=== PATIENT | male | born 1950 | race Caucasian/White ===

== ENCOUNTER 2017-10-10 07:20 | Emergency (ER) | payer OTHER, BC ==
[~2017-10-10] VITALS: Ht 188 cm; Wt 90.0 kg
[~2017-10-10 07:20] MED LIST: ASPEC81 PO; CLX20 PO; DVN80 PO; HYDR-4079 PO; LPR25 PO; PRLSR20 PO; SIMV80TA2 PO
[2017-10-10 07:23] VITALS: TEMP 37.8; Ht 188 cm; Wt 90.0 kg
[2017-10-10] MEDS ORDERED: KETOROLAC TROMETHAMINE 30 MG/ML VIAL IV STA (07:35)
[2017-10-10] MEDS ORDERED: ALBUT/IPRATROP 3MG/0.5MG NEB 3 ML VIAL INH STA (07:35)
[2017-10-10] MEDS ORDERED: METHYLPREDNISOLONE 125 MG VIAL IV STA (07:35)
[2017-10-10 08:09] VITALS: O2SAT 97
[2017-10-10 08:24] LABS: ALT/SGPT 129 U/L (12-78); BLOOD UREA NITROGEN 21 mg/dl (7-18); BUN/CREATININE RATIO 15.7 (10-20); CARBON DIOXIDE 25 mmol/L (21-32); CHLORIDE 94 mmol/L (98-107); CREATININE 1.32 mg/dl (0.60-1.40); GLUCOSE 117 mg/dl (70-99); POTASSIUM 3.7 mmol/L (3.5-5.1); SODIUM 131 mmol/L (136-145)
--- NOTE | 2017-10-10 08:25 | DIAGNOSTIC IMAGING REPORT ---
CHEST ONE VIEW PORTABLE CLINICAL HISTORY: 67 years-old Male presenting with cough. TECHNIQUE: Portable upright AP view of the chest was obtained. COMPARISON: 03/16/2013. FINDINGS: Median sternotomy wires with stable breakage of one of the mid wires. Mediastinal surgical clips unchanged. Cardiomediastinal silhouette normal. Lungs and pleural spaces clear. Osseous structures normal. Upper abdomen normal. IMPRESSION: 1. No acute cardiopulmonary disease. Electronically signed by: Johan Bhakta M.D. 10/10/2017 8:24 AM Dictated Date/Time: 10/10/2017 8:22 AM
[2017-10-10 08:29] LABS: ALB/GLOB RATIO 0.9 (0.9-2); ALKALINE PHOSPHATASE 141 U/L (45-117); AST/SGOT 153 U/L (15-37)
[2017-10-10 08:41] LABS: MEAN CELL VOLUME 91.5 fL (80-100); MEAN CORPUSCULAR HEMOGLOBIN 32.7 pg (25-34); MEAN CORPUSCULAR HGB CONC 35.8 g/dl (32-36); RED BLOOD COUNT 4.92 M/uL (4.7-6.1); WHITE BLOOD COUNT 2.63 K/uL (4.8-10.8)
[2017-10-10 08:59] LABS: MEAN PLATELET VOLUME 12.4 fL (7.4-10.4); PLATELET COUNT 53 K/uL (130-400)
[2017-10-10 09:05] LABS: COMPLETE YES; LYMPH ABS # 0.09 K/uL (1.2-3.4); LYMPHOCYTE % 3.5 %; NEUTROPHILS % 81.5 %; PLT ESTIMATE DECREASED; VACUOLIZATION 2+; VARIANT LYM ABS # 0.28 K/uL; VARIANT LYMPHOCYTE % 10.6 %
[2017-10-10] MEDS ORDERED: CITA40TA4 PO (09:08)
[2017-10-10] MEDS ORDERED: ASPI81TA28 PO (09:08)
[2017-10-10] MEDS ORDERED: DOXYCYCLINE HYCLATE 100 MG CAP PO STA (09:42)
[2017-10-10] MEDS ORDERED: HYDR-3419 PO (10:14)
[2017-10-10] MEDS ORDERED: DOXY100C41 PO (10:14)
[2017-10-10 10:15] VITALS: BP 97/68; PULSE 78; O2SAT 97
--- NOTE | 2017-10-10 10:15 | EMERGENCY ROOM VISIT NOTE ---
History Report prepared by Mary: Trice Corey Under the Supervision of: Dr. Shola Kelly D.O. First contact with patient: 07:27 Chief Complaint: COUGH Stated Complaint: FEVER,CHILLS,PAIN Nursing Triage Summary: pt to the ED with 5 day hx of cough and difficulty sleeping pt states the cough is non productive and has had a hard time eating as well History of Present Illness The patient is a 67 year old male who presents to the Emergency Room with complaints of an intermittent non-productive cough for the past 5 days. He has chest pain with coughing. He is also having difficulty walking. He states that he can't walk further than 3 feet without becoming tired and having to rest. For the past 4 days he has had a fever and rhinorrhea. The patient has been taking amoxicillin that he had at his house. He rates his current pain as a 9/ 10 in severity. The patient denies sore throat. Source of History: patient Onset: 5 days ago Position: chest (respiratory) Symptom Intensity: 9/10 Quality: other (non-productive cough) Timing: intermittent Associated Symptoms: + fevers, + chest pain (with coughing), + fatigue, No sorethroat Review of Systems See HPI for pertinent positives & negatives. A total of 10 systems reviewed and were otherwise negative. Past Medical & Surgical Medical Problems: (1) Cholelithiasis NOS (2) Diverticulosis of colon (without mention of hemorrhage) (3) Esophageal reflux (4) Hypertension Family History No pertinent history stated. Social History Smoking Status: Current Every Day Smoker Marital Status: Housing Status: lives with significant other Current/Historical Medications Scheduled Aspirin (Aspirin Ec), 81 MG PO DAILY Citalopram (Citalopram Hydrobromide), 1 TAB PO DAILY Doxycycline (Monohydrate) (Monodox), 1 CAP PO BID Metoprolol Tartrate (Lopressor), 25 MG PO BID Omeprazole (Prilosec), 20 MG PO DAILY Simvastatin (Zocor), 80 MG PO QPM Scheduled PRN Hydrocodon/Acetaminophen 5MG/300MG (Vicodin (5MG/300MG)), 1 TAB PO Q6H PRN for Pain Hydrocodone/Acetaminophen 10MG/325MG ([place] 10MG/325MG), 1 TAB PO Q6H PRN for Pain Allergies Coded Allergies: No Known Allergies (Verified , 02/21/11) Physical Exam Vital Signs Date Time Temp Pulse Resp B/P (MAP) Pulse Ox O2 Delivery O2 Flow Rate FiO2 10/10/17 10:15 78 18 97/68 97 Room Air 10/10/17 08:20 88 25 10/10/17 08:10 87 10/10/17 08:09 97 Room Air 10/10/17 07:23 37.8 101 20 101/66 98 Physical Exam CONSTITUTIONAL/VITAL SIGNS: Reviewed / noted above. GENERAL: Non-toxic in appearance. INTEGUMENTARY: Warm, dry, and [place]. HEAD: Normocephalic. EYES: without scleral icterus or trauma. ENT/OROPHARYNX: clear and moist. LYMPHADENOPATHY/NECK: Is supple without lymphadenopathy or meningismus. RESPIRATORY: Scattered wheezes, occasional non-productive cough. CARDIOVASCULAR: Regular rate and rhythm. GI/ABDOMEN: Soft and nontender. No organomegaly or pulsatile mass. No rebound or guarding. Normal bowel sounds. EXTREMITIES: Warm and well perfused. BACK: No CVA tenderness. NEUROLOGICAL: Intact without focal deficits. PSYCHIATRIC: normal affect. MUSCULOSKELETAL: Normally developed with good muscle tone. Medical Decision & Procedures ER Provider Diagnostic Interpretation: Radiology results as stated below per my review and radiologist interpretation: CHEST ONE VIEW PORTABLE CLINICAL HISTORY: 67 years-old Male presenting with cough. TECHNIQUE: Portable upright AP view of the chest was obtained. COMPARISON: 03/16/2013. FINDINGS: Median sternotomy wires with stable breakage of one of the mid wires. Mediastinal surgical clips unchanged. Cardiomediastinal silhouette normal. Lungs and pleural spaces clear. Osseous structures normal. Upper abdomen normal. IMPRESSION: 1. No acute cardiopulmonary disease. Electronically signed by: Johan Bhakta M.D. 10/10/2017 8:24 AM Dictated Date/Time: 10/10/2017 8:22 AM Laboratory Results 10/10/17 07:50 Red Blood Count 4.92, Mean Corpuscular Volume 91.5, Mean Corpuscular Hemoglobin 32.7, Mean Corpuscular Hemoglobin Concent 35.8, Mean Platelet Volume 12.4 10/10/17 07:50 Test 10/10/17 07:50 White Blood Count 2.63 K/uL (4.8-10.8) Red Blood Count 4.92 M/uL (4.7-6.1) Hemoglobin 16.1 g/dL (14.0-18.0) Hematocrit 45.0 % (42-52) Mean Corpuscular Volume 91.5 fL (80-100) Mean Corpuscular Hemoglobin 32.7 pg (25-34) Mean Corpuscular Hemoglobin Concent 35.8 g/dl (32-36) Platelet Count 53 K/uL (130-400) Mean Platelet Volume 12.4 fL (7.4-10.4) RDW Standard Deviation 43.8 fL (36.4-46.3) RDW Coefficient of Variation 13.1 % (11.5-14.5) Neutrophils % (Manual) 81.5 % Lymphocytes % (Manual) 3.5 % Variant Lymphocytes % (manual) 10.6 % Monocytes % (Manual) 4.4 % Neutrophils # (Manual) 2.14 K/uL (1.4-6.5) Total Absolute Neutrophils 2.14 K/uL (1.4-6.5) Lymphocytes # (Manual) 0.09 K/uL (1.2-3.4) Absolute Variant Lymphocytes 0.28 K/uL Total Absolute Lymphocytes 0.37 K/uL (1.2-3.4) Monocytes # (Manual) 0.12 K/uL (0.11-0.59) Toxic Vacuolation 2+ Platelet Estimate DECREASED Anion Gap 11.0 mmol/L (3-11) Est Creatinine Clear Calc Drug Dose 64.9 ml/min Estimated GFR () 65.2 Estimated GFR (Non- 56.2 BUN/Creatinine Ratio 15.7 (10-20) Calcium Level 9.0 mg/dl (8.5-10.1) Total Bilirubin 1.5 mg/dl (0.2-1) Aspartate Amino Transf (AST/SGOT) 153 U/L (15-37) Alanine Aminotransferase (ALT/SGPT) 129 U/L (12-78) Alkaline Phosphatase 141 U/L (45-117) Troponin I < 0.015 ng/ml (0-0.045) Total Protein 7.7 gm/dl (6.4-8.2) Albumin 3.7 gm/dl (3.4-5.0) Globulin 4.0 gm/dl (2.5-4.0) Albumin/Globulin Ratio 0.9 (0.9-2) Laboratory results as stated above per my review. Medications Administered Medications (Trade) Dose Ordered Sig/Aashish Route Start Time Stop Time Status Last Admin Dose Admin Albuterol/ Ipratropium (Duoneb) 3 ml NOW STAT INH 10/10/17 07:35 10/10/17 07:41 DC 10/10/17 08:08 3 ML Ketorolac Tromethamine (Toradol Inj) 30 mg NOW STAT IV 10/10/17 07:35 10/10/17 07:41 DC 10/10/17 08:08 30 MG Methylprednisolone Sodium Succinate (Solu-Medrol IV) 125 mg NOW STAT IV 10/10/17 07:35 10/10/17 07:41 DC 10/10/17 08:08 125 MG Doxycycline Hyclate (Vibramycin Cap) 100 mg NOW STAT PO 10/10/17 09:42 10/10/17 09:43 DC 10/10/17 10:21 100 MG ECG Indication: SOB/dyspnea Rate (beats per minute): 91 Rhythm: normal sinus Findings: T-wave inversion (Anterior), no acute ischemic change, no ectopy Comparison ECG Date: 04/21/14 Change: no significant change ED Course 0727: Previous medical records were reviewed. The patient was evaluated in room A10. A complete history and physical examination was performed. 0735: Solu-Medrol 125 mg IV, Toradol 30 mg IV, DuoNeb 3 ml INH 0942: Vibramycin 100 mg PO 0954: I spoke with Dr. Ashford of infectious disease. We discussed the patient's case. Dr. Ashford will follow-up with the patient as an outpatient. 0958: I reassessed the patient at this time. He is feeling better and resting comfortably. I discussed the results and treatment plan with the patient. I answered all pertaining questions that he had. He expressed understanding and verbalized agreement. The patient will be discharged home. Medical Decision Differential diagnosis: Etiologies such as infections, reactive airway disease, pneumonia, pneumothorax , COPD, CHF, cardiac ischemia, pulmonary embolism, musculoskeletal, gastrointestinal, as well as others were entertained. This is a 67-year-old male who presents to the ED with a chief complaint of a cough. The patient reports a mostly nonproductive cough. He states that he has had for about a week and has had a fever off and on for about 4 days. He started taking some amoxicillin that he had at the house yesterday. The patient has a temperature of 37.8 here today. He is a smoker. His exam reveals scattered wheezes in the lungs. He is in no distress. His pulse ox was normal on room air. The patient is no distress. Laboratory studies reveal a decreased white blood cell count, slight elevation of AST and ALT, slight elevation of bilirubin and alkaline phosphatase, troponin was negative, platelet count was low. Chest x-ray was negative for acute disease. EKG shows a normal sinus rhythm. The peripheral smear was concerning for anaplasmosis. DNA testing has been sent. The patient was started on doxycycline by mouth. I spoke with Dr. Ashford who will follow-up with the patient. The patient was discharged on doxycycline and hydrocodone. He was treated with a DuoNeb treatment, IV Toradol for some discomfort related to his cough and some IV Solu-Medrol. [place] Drug Monitoring Program Search Results: patient reviewed within database Medication Reconcilliation Current Medication List: was personally reviewed by me Blood Pressure Screening Patient's blood pressure: Low blood pressure Consults Time Called: 09 Consulting Physician: Dr. Ashford Returned Call: [phone] Ashford of infectious disease. We discussed the patient's case. Dr. Ashford will follow-up with the patient as an outpatient. Impression Primary Impression: Human anaplasmosis Scribe Attestation The scribe's documentation has been prepared under my direction and personally reviewed by me in its entirety. I confirm that the note above accurately reflects all work, treatment, procedures, and medical decision making performed by me. Departure Information Dispostion Home / Self-Care Prescriptions Hydrocodon/Acetaminophen 5MG/300MG (VICODIN (5MG/300MG)) 1 Tab Tab 1 TAB PO Q6H Y for Pain, #20 TAB Prov: Shola Kelly D.O. 10/10/17 Doxycycline (Monohydrate) (MONODOX) 100 Mg Cap 1 CAP PO BID for 10 Days, #20 CAP Prov: Shola Kelly D.O. 10/10/17 Referrals Ronald Cervantes M.D. (PCP) Luis Ashford MD Patient Instructions My [facility] Additional Instructions Your test results today are concerning for Anaplasmosis, a tick borne illness. Doxycycline as prescribed for 10 days. Follow-up with your PCP this week for recheck. Follow-up with Dr. Ashford from infectious disease. Call today for an appointment.
[2017-10-11 18:35] LABS: ANAPLASMA PHAGOCYTOPHIL DNA Detected (Not Detected)
== END 2017-10-10 10:35 | disposition home or self-care (01) ==
LOC: C.EDB 07:21 → C.EDA 10:35
DX: A77.49 Other ehrlichiosis (principal); R05 Cough; R07.9 Chest pain, unspecified; R50.9 Fever, unspecified; R53.83 Other fatigue; I10 Essential (primary) hypertension; K21.9 Gastro-esophageal reflux disease without esophagitis; Z79.82 Long term (current) use of aspirin; Z79.899 Other long term (current) drug therapy; Z87.19 Personal history of other diseases of the digestive system; F17.200 Nicotine dependence, unspecified, uncomplicated

== ENCOUNTER → 2017-10-13 | Outpatient (CLI) | payer OTHER, BC ==
[~2017-10-13] MED LIST changes: -ASPEC81 PO; +ASPI81TA28 PO; +CITA40TA4 PO; -CLX20 PO; +DOXY100C41 PO; -DVN80 PO; +HYDR-3419 PO
[2017-10-13 18:02] LABS: MEAN CELL VOLUME 92.4 fL (80-100); MEAN CORPUSCULAR HGB CONC 34.7 g/dl (32-36); MEAN PLATELET VOLUME 12.3 fL (7.4-10.4); PLATELET COUNT 116 K/uL (130-400); RED BLOOD COUNT 4.87 M/uL (4.7-6.1); WHITE BLOOD COUNT 10.16 K/uL (4.8-10.8)
[2017-10-13 18:03] LABS: COMPLETE YES; EOSINOPHIL % 0.9 %; LARGE PLATELETS 1+; LYMPH ABS # 1.26 K/uL (1.2-3.4); LYMPHOCYTE % 12.4 %; NEUTROPHILS % 49.5 %; PLT ESTIMATE DECREASED; VARIANT LYMPHOCYTE % 35.4 %
== END | disposition home or self-care (01) ==
LOC: C.LABBFT 14:38
PROVIDERS: ATTEND Nurse Practitioner
DX: A77.49 Other ehrlichiosis (principal)

== ENCOUNTER 2017-10-24 19:21 | Inpatient (IN) | payer OTHER, BC ==
[2017-10-24] VITALS (7 sets, daily range): BP systolic 101–120; BP diastolic 66–81; PULSE 62–69; TEMP 36.5–36.6; O2SAT 96–99; Ht 182.9 cm; Wt 91.0 kg
[~2017-10-24] VITALS: Ht 182.9 cm; Wt 91.0 kg
[~2017-10-24 19:21] MED LIST changes: -DOXY100C41 PO
[2017-10-24] MEDS ORDERED: FENTANYL CITRATE INJ 50 MCG/1 ML 2 ML VIAL IV STA (19:35)
[2017-10-24] MEDS ORDERED: SODIUM CHLORIDE 0.9% 1000ML 1,000 ML IV STA (19:35)
[2017-10-24] MEDS: NITROGLYCERIN 0.4 MG SL PER TAB CHARGE SL PRN ×2 (19:48→22:05)
[2017-10-24 19:49] LABS: HEMATOCRIT 38.5 % (42-52); MEAN CELL VOLUME 93.9 fL (80-100); MEAN CORPUSCULAR HEMOGLOBIN 32.2 pg (25-34); MEAN CORPUSCULAR HGB CONC 34.3 g/dl (32-36); MEAN PLATELET VOLUME 9.7 fL (7.4-10.4); PLATELET COUNT 379 K/uL (130-400); WHITE BLOOD COUNT 12.18 K/uL (4.8-10.8)
[2017-10-24] MEDS ORDERED: BENZ1CAP90 PO (19:50)
[2017-10-24] MEDS ORDERED: NTRGSL/4 UT (19:51)
[2017-10-24 19:54] LABS: ISTAT CREATININE 1.6 mg/dl (0.6-1.3); ISTAT HEMOGLOBIN 13.6 g/dl (14.0-18.0); ISTAT IONIZED CALCIUM 1.1 mmol/l (1.12-1.32)
[2017-10-24] MEDS ORDERED: MIDAZOLAM HCL 1 MG/ML 2ML VIAL ONE ×3 (19:55→20:56)
[2017-10-24] MEDS ORDERED: HEPARIN SOD (PORCINE) 1000 UNIT/ML 10 ML VIAL ONE (19:55)
[2017-10-24] MEDS ORDERED: NiCARDipine HCL INJ 2.5 MG/ML 10 ML AMP ONE (19:55)
[2017-10-24] MEDS ORDERED: NITROGLYCERIN/D5W 100MCG/ML 20ML SYR ONE (19:56)
[2017-10-24 20:05] LABS: ALT/SGPT 37 U/L (12-78); BLOOD UREA NITROGEN 24 mg/dl (7-18); BUN/CREATININE RATIO 14.5 (10-20); CALCIUM 9.3 mg/dl (8.5-10.1); CARBON DIOXIDE 21 mmol/L (21-32); CHLORIDE 107 mmol/L (98-107); CREATININE 1.66 mg/dl (0.60-1.40); GLUCOSE 147 mg/dl (70-99); MAGNESIUM 1.8 mg/dl (1.8-2.4); POTASSIUM 3.7 mmol/L (3.5-5.1); SODIUM 140 mmol/L (136-145)
[2017-10-24 20:09] LABS: ALKALINE PHOSPHATASE 108 U/L (45-117); AST/SGOT 22 U/L (15-37); CKMB/CK RATIO 1.4 (0-3.0)
--- NOTE | 2017-10-24 20:21 | DIAGNOSTIC IMAGING REPORT ---
CHEST ONE VIEW PORTABLE CLINICAL HISTORY: 67 years-old Male presenting with cardiac assessment. TECHNIQUE: PICC to COMPARISON: 10/10/2017. FINDINGS: Median sternotomy wires and extensive mediastinal surgical clips noted. Cardiomediastinal silhouette otherwise normal. Lungs and pleural spaces clear. Osseous structures normal. Upper abdomen normal. IMPRESSION: 1. No acute cardiopulmonary disease. Electronically signed by: Johan Bhakta M.D. 10/24/2017 8:20 PM Dictated Date/Time: 10/24/2017 8:19 PM
[2017-10-24] MEDS ORDERED: EPTIFIBATIDE 2 MG/ML 10 ML VIAL IV ONE (21:06)
[2017-10-24] MEDS ORDERED: EPTIFIBATIDE 0.75 MG/ML 75MG VIAL IV ONE (21:06)
[2017-10-24 21:12] LABS: BASO % 0.2 %; BASO ABS # 0.03 K/uL (0-0.2); COMPLETE YES; EOS % 0.6 %; IG% 0.2 %; LYMPH % 45.2 %; LYMPH ABS # 5.51 K/uL (1.2-3.4); MONO % 5.4 %; NEUT % 48.4 %
[2017-10-24] MEDS ORDERED: TICAGRELOR 90 MG TAB PO ONE (21:27)
--- NOTE | 2017-10-24 21:43 | Procedure Note ---
Pre-Mod Sedation Assessment General Date of Moderate Sedation: Oct 24, 2017. Vital Signs: Vital Signs Past 12 Hours Date Time Temp Pulse Resp B/P (MAP) Pulse Ox O2 Delivery O2 Flow Rate FiO2 10/24/17 21:29 61 18 140/89 (106) 98 Room Air 10/24/17 21:19 66 18 115/89 (98) 98 Room Air 10/24/17 19:50 96 Room Air 10/24/17 19:49 96 Room Air 10/24/17 19:43 72 10/24/17 19:37 36.6 77 20 126/70 96 Room Air 10/24/17 19:31 96 Room Air Review Cardiovascular: regular rate, rhythm, no edema Abdomen: normal bowel sounds, non tender Lungs: chest non-tender, lungs clear Pre-Sedation Airway Assessment Oral Cavity: Dental Abnormalities Able to Visualize Vocal Cords: Yes Short Thick Neck: No Hx of Sleep Apnea: No Smoking Status: Current Every Day Smoker Mallampati Classification: Class III ASA Classification: Class IV Procedure Planning Contraindications-for Mod Sed: None Yes Notes The planned sedation has been discussed with the patient and consent obtained. I have identified the patient, determined the appropriateness of sedation and have assessed the patient immediately prior to the procedure. All medicine(s) and interventions are by my order.
--- NOTE | 2017-10-24 21:44 | Procedure Note ---
Post-Mod Sedation Assessment General Date of Moderate Sedation Oct 24, 2017. Vital Signs: Vital Signs Past 12 Hours Date Time Temp Pulse Resp B/P (MAP) Pulse Ox O2 Delivery O2 Flow Rate FiO2 10/24/17 21:29 61 18 140/89 (106) 98 Room Air 10/24/17 21:19 66 18 115/89 (98) 98 Room Air 10/24/17 19:50 96 Room Air 10/24/17 19:49 96 Room Air 10/24/17 19:43 72 10/24/17 19:37 36.6 77 20 126/70 96 Room Air 10/24/17 19:31 96 Room Air Review - Discharge Criteria Vital Signs Stable: Yes Alert/Oriented/Conversant: Yes Returned to Baseline Mental St: Yes Nausea Absent/Minimal: Yes Pain/Discomfort/Absent/Minimal: Yes Normal/Baseline Respirations: Yes Active Bleeding?: No Pt Received D/C Instructions: N/A Prescriptions Given: None Specific Proced. D/C Criteria Distal Pulses Present (Cardiac: Yes Groin site assessed-Card Cath: Yes Voided Prior To Discharge: N/A Discharged Patients Adult Escort/Transportation: Yes
[2017-10-24] MEDS ORDERED: ACETAMINOPHEN 325 MG TAB PO PRN (21:45)
[2017-10-24] MEDS ORDERED: EPTIFIBATIDE BOLUS / DRIP IV ONE (21:45)
[2017-10-24] MEDS ORDERED: NITROGLYCERIN 0.4 MG SL PER TAB CHARGE SL PRN (21:45)
--- NOTE | 2017-10-24 22:02 | Cardiac Catheterization ---
Procedure Note Procedure Date Oct 24, 2017. Pre-Procedure Diagnosis STEMI AUC Score 9 Post-Procedure Diagnosis Severe CAD, Successful PCI, Elevated Intracardiac Pressures Procedure(s) Performed Coronary Angiography, Left Heart Cath, Drug Eluting Stent, Bypass Graft Angiography, Femoral Artery Angiography Telephone Surveyor sridhar Full Roll Inspector(s) Lauren Estimated Blood Loss 20 Medication(s) Fentanyl, Heparin, Hydralazine, Nicardipine, Nitroglycerin, Versed, Lidocaine 1% Summary of Findings Indication: STEMI/Heart Alert Access: 6Fr femoral artery Catheters: JL4, JR4, KELLEE, pigtail; EBU 3.75 guide Findings: LM - Luminal irregularities LAD - 80% proximal disease; completely occluded after small 1st diagonal. Circumflex - Large vessel, 95% hazy mid segment stenosis after small OM2, subtotal acute occlusion of large proximal OM3 RCA - Chronically occluded proximally. Distal vessel fills via left to right collaterals from distal LAD. NJ-LAD - Widely patent; distal LAD small vessel with luminal irregularities. Gives off collaterals to distal RCA. LVEDP - 22 -- PCI -- Antithrombotic therapy: Heparin, Integrilin, Ticagrelor Procedure: LM cannulated with EBU 3.75 guide Prowater wire passed across lesions into distal OM3 Mid circumflex and proximal OM3 lesions predilated with 3.0 compliant balloon OM3 lesion back into circumflex stented with 4.0 x 28 Xience ELAINE. 2nd ELAINE 4.0 x 23 Xience overlapped with first stent extending back into proximal circumflex Stents post-dilated with 4.5 noncompliant balloon IC vasodilators administered for spasm Post procedure CARLOS 3 flow, stent well expanded with minimal residual stenosis. Thrombus noted in proximal aspect of more proximal stent -- thrombus balloned and patient started on integrilin. Arterial Closure: AngioSeal Summary: 1. Posterior STEMI/Occluded mid Circumflex/OM3 2. Chronic severe multivessel disease - 80% proximal LAD, chronically occluded mid LAD - Chronically occluded proximal RCA 3. Patent NJ-LAD with distal vessel providing left to right collaterals to RCA. 4. Elevated intracardiac filling pressures 5. Successful PCI of circumflex/OM3 with 2 overlapping ELAINE (4.0 x 18, 4.0 x 23 - - post-dilated to 4.5) Recommendations: Admit to ICU for continued monitoring Loaded with Ticagrelor 180mg Continue Integrilin infusion for 12 hrs Continue dual-antiplatelet therapy for at least 1 year Trend troponins until peak, Check Echo Uptitrate beta-colton/STEFANIE as BP allows High-dose statin Consult cardiac Rehab Hemodynamics Rest Ao: 103/57/80 Final Ao: 110/60/80 LV: 110/3/22 Recommendations PCI without planned CABG Specimens None Radiation Exposure (mGy) 4050 Contrast (mls) 170 Visi Fluids (cc crystalloids) 112 NS Drains None Anesthesia Moderate Procedural Complication(s) None Disposition ICU ACC Data Cardiac Status Clinical evaluation leading to the procedure CAD Presntation: STEMI Anginal Classification: CCS IV Heart Failure: No, NYHA Class: CCS I Cardiogenic Shock w/in 24Hrs: No Cardiac Arrest w/in 24Hrs: No Imaging studies past 6 months: No Stress studies past 6 months: No Diagnostic Status: Emergency Closure Device Percutaneous Entry Location: Femoral Closure Device: Angio-Seal Recommendations: PCI without planned CABG PCI Indication: Immediate PCI for STEMI First Noted: First EKG Lesion Segment Name: Mid circumflex/OM3 Culprit Artery: Yes Stenosis Prior to Rx (%): 100 Chronic Total Occlusion: No IVUS: No FFR: No Pre-Procedure CARLOS Flow: 0 Previously Treated Lesion: No Lesion Complexity: Non-High/Non-C Lesion Length (mm): 45 Thrombus Present: Yes Bifurcation Lesion: No Guidewire Across Lesion: Yes Guidewire: Stenosis Post-Procedure (%): 0 Post-Procedure CARLOS Flow: 3 Device(s) Deployed: Yes Intraprocedure Events Significant Dissection: No Perforation: No
[2017-10-24] MEDS: EPTIFIBATIDE INJ 75 MG PREMIXED IV SCH (22:17)
[2017-10-24] MEDS ORDERED: SODIUM CHLORIDE 0.9% 1000ML 1,000 ML IV SCH (22:30)
--- NOTE | 2017-10-24 22:33 | Critical Care Consultation ---
Critical Care Consultation Date of Consultation: Oct 24, 2017. Attending Physician: Ashu Herrera M.D. Reason for Consultation: 67-year-old male with acute posterior ST segment elevation myocardial infarction requiring angioplasty with ELAINE 2 to the circumflex artery requiring close cardiac monitoring. On Integrilin drip. History of Present Illness Patient is a 67-year-old male with a significant past medical history of severe coronary artery disease status post NJ grafting of the LAD in 2006 who reports that he was in his yard most of the day blowing leaves. Upon entering his house at approximately dark, the patient experienced central chest discomfort with pain radiating into the bilateral arms, specifically RIGHT greater than left. He reports that the pain was persistent which prompted his visit to the emergency department. Patient was found to have a posterior STEMI. He was loaded with Brilinta and taken emergently to the catheterization lab. Patient's graft was found to be widely patent. Proximal stenosis noted to the LEFT circumflex and OM 3. Successful angioplasty with deployment of ELAINE 2 in Zeyad lap in fashion was achieved. Small proximal clot was noted at the proximal ELAINE. This was ballooned and the patient was topically started on Integrilin drip to be completed in 12 hours. Entrance site was to the right groin secondary to history of NJ grafting. Upon arrival to the ICU, the patient is complaining of pain to the RIGHT arm, specifically the elbow and wrist. He does report a history of RIGHT wrist carpal tunnel syndrome, but reports that this does feel different. Repeat EKG shows persistent ST depression in V1/2. Patient was treated with IV fentanyl with complete resolve of pain. 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 He was started on normal saline at 75 mL/m. At this time, the patient is resting comfortably and appears no complaints. He denies any headaches, dizziness, lightheadedness, blurry vision, double vision, palpitations, shortness of breath, pleuritic pain, nausea, vomiting, abdominal pain, or extremity pain. Of note, the patient does report that he was recently at this facility and diagnosed with anaplasmosis. He completed a 10 day course of doxycycline. At this point, he reports feeling approximately 50% better than his initial presentation. He describes weakness and generalized malaise as well as fatigue. He does have a scheduled infectious disease appointment tomorrow. Patient lives at home with family. He smokes approximately 1.5 packs of cigarettes per day. He denies any other illicit substance use. Past Medical/Surgical History Medical Problems: (1) AMI (acute myocardial infarction) (2) Cholelithiasis NOS (3) Diverticulosis of colon (without mention of hemorrhage) (4) Esophageal reflux (5) Hypertension Family History Patient reports no known family medical history. Noncontributory Social History Smoking Status: Current Every Day Smoker Smokeless Tobacco Use: No Alcohol Use: none Drug Use: none Marital Status: Housing Status: lives with significant other Occupation Status: other Allergies Coded Allergies: No Known Allergies (Verified , 02/21/11) Home Medications Scheduled Aspirin (Aspirin Ec), 81 MG PO DAILY Citalopram (Citalopram Hydrobromide), 40 MG PO DAILY Metoprolol Tartrate (Lopressor), 25 MG PO BID Nitroglycerin (Nitrostat), 0.4 MG UT PRN Omeprazole (Prilosec), 20 MG PO DAILY Scheduled PRN Benzonatate (Tessalon Perles), 200 MG PO TID PRN for Cough Hydrocodone/Acetaminophen 10MG/325MG ([place] 10MG/325MG), 1 TAB PO Q6H PRN for Pain Current Inpatient Medications Current Inpatient Medications Medications (Trade) Dose Ordered Sig/Aashish Route Start Time Stop Time Status Last Admin Dose Admin Nitroglycerin (Nitrostat Tab) 0.4 mg UD PRN SL 10/24/17 21:45 11/23/17 21:44 10/24/17 22:17 0.4 MG Sodium Chloride 1,000 ml @ 125 mls/hr Q8H IV 10/24/17 22:30 10/25/17 04:29 10/24/17 22:21 125 MLS/HR Aspirin (Ecotrin Tab) 81 mg QAM PO 10/25/17 09:00 11/24/17 08:59 Atorvastatin Calcium (Lipitor Tab) 80 mg QAM PO 10/25/17 09:00 11/24/17 08:59 Metoprolol Tartrate (Lopressor Tab) 12.5 mg Q12 PO 10/25/17 09:00 11/24/17 08:59 Lisinopril (Zestril Tab) 5 mg QAM PO 10/25/17 09:00 11/24/17 08:59 Acetaminophen (Tylenol Tab) 650 mg Q4H PRN PO 10/24/17 21:45 11/23/17 21:44 Ticagrelor (Brilinta Tab) 90 mg BID PO 10/25/17 09:00 11/24/17 08:59 Benzonatate (Tessalon Perles Cap) 200 mg TID PRN PO 10/24/17 21:45 11/23/17 21:44 Citalopram Hydrobromide (celeXA TAB) 40 mg DAILY PO 10/25/17 09:00 11/24/17 08:59 Pantoprazole Sodium (Protonix Tab) 40 mg QAM PO 10/25/17 09:00 11/24/17 08:59 Eptifibatide 100 ml @ 16 mls/hr Q6H15M IV 10/24/17 22:15 10/25/17 08:00 10/24/17 22:17 16 MLS/HR Miscellaneous (Stop Order) 1 ea 0800 ONCE N/A 10/25/17 08:00 10/25/17 08:01 Review of Systems A complete 10-point Review of Systems was discussed with the patient, with pertinent positives and negatives listed in the History of Present Illness. All remaining Review of Systems questions can be considered negative unless otherwise specified. Physical Exam Date Time Temp Pulse Resp B/P (MAP) Pulse Ox O2 Delivery O2 Flow Rate FiO2 10/24/17 22:01 69 20 114/81 (92) 99 Nasal Cannula 2.0 10/24/17 21:45 64 22 120/81 (94) 97 Nasal Cannula 2.0 10/24/17 21:40 36.5 69 20 114/81 10/24/17 21:40 36.5 63 14 117/76 (90) 96 Nasal Cannula 2.0 10/24/17 21:29 61 18 140/89 (106) 98 Room Air 10/24/17 21:19 66 18 115/89 (98) 98 Room Air 10/24/17 19:50 96 Room Air 10/24/17 19:49 96 Room Air 10/24/17 19:43 72 10/24/17 19:37 36.6 77 20 126/70 96 Room Air 10/24/17 19:31 96 Room Air VITAL SIGNS - Vital signs and nursing notes were reviewed. GENERAL - 67-year-old male appearing his stated age who is in no acute distress. Communicates well with provider and answers questions appropriately. HEAD - NC/AT. EYES - PERRL with EOMI bilaterally. Sclera anicteric. Palpebral conjunctiva pink and moist with no injection noted. EARS - No deformities of external structures noted on gross examination bilaterally. NOSE - Midline and without cyanosis. No epistaxis or purulent drainage noted. MOUTH/OROPHARYNX - Without perioral cyanosis. Buccal mucosa pink and moist and without leukoplakia. Tongue midline with equal elevation of palate bilaterally. Poor dentition noted. NECK - Neck with FROM. Supple to palpation. LUNGS - Chest wall symmetric without accessory muscle use, intercostals retractions, or central cyanosis. Normal vesicular breath sounds CTA B/L. No wheezes, rales, or rhonchi appreciated. CARDIAC - RRR with S1/S2. No murmur, rubs, or gallops appreciated. No reproducible tenderness to palpation appreciated over the anterior chest wall. ABDOMEN - Abdominal contour flat and without pulsations or visible masses. BS normoactive all four quadrants. No tenderness, palpable masses, hepatosplenomegaly, or ascites noted. EXTREMITIES - No clubbing or peripheral cyanosis. No pretibial edema present. +3 /5 radial pulses bilaterally and +2/5 RIGHT and +3/5 LEFT dorsalis pedis pulses with +3/5 posterior tibial pulses bilaterally. +5/5 strength noted in UE/LE bilaterally. NEUROLOGIC - Cranial nerves II through XII grossly intact. Sensory intact to light touch throughout. PSYCH - A&Ox3 and cooperates fully with examiner. Laboratory Results Last 24 Hours Test 10/24/17 19:35 10/24/17 19:36 10/24/17 19:41 10/24/17 22:15 White Blood Count 12.18 K/uL Red Blood Count 4.10 M/uL Hemoglobin 13.2 g/dL Hematocrit 38.5 % Mean Corpuscular Volume 93.9 fL Mean Corpuscular Hemoglobin 32.2 pg Mean Corpuscular Hemoglobin Concent 34.3 g/dl Platelet Count 379 K/uL Mean Platelet Volume 9.7 fL Neutrophils (%) (Auto) 48.4 % Lymphocytes (%) (Auto) 45.2 % Monocytes (%) (Auto) 5.4 % Eosinophils (%) (Auto) 0.6 % Basophils (%) (Auto) 0.2 % Neutrophils # (Auto) 5.88 K/uL Lymphocytes # (Auto) 5.51 K/uL Monocytes # (Auto) 0.66 K/uL Eosinophils # (Auto) 0.07 K/uL Basophils # (Auto) 0.03 K/uL RDW Standard Deviation 46.1 fL RDW Coefficient of Variation 13.4 % Immature Granulocyte % (Auto) 0.2 % Immature Granulocyte # (Auto) 0.03 K/uL Red Blood Cell Morphology Unremarkable Sodium Level 140 mmol/L Potassium Level 3.7 mmol/L Chloride Level 107 mmol/L Carbon Dioxide Level 21 mmol/L Anion Gap 12.0 mmol/L 22.0 mmol/L Blood Urea Nitrogen 24 mg/dl Creatinine 1.66 mg/dl Est Creatinine Clear Calc Drug Dose 54.2 ml/min Estimated GFR () 49.4 Estimated GFR (Non- 42.6 BUN/Creatinine Ratio 14.5 Random Glucose 147 mg/dl Calcium Level 9.3 mg/dl Magnesium Level 1.8 mg/dl Total Bilirubin 0.4 mg/dl Direct Bilirubin 0.1 mg/dl Aspartate Amino Transf (AST/SGOT) 22 U/L Alanine Aminotransferase (ALT/SGPT) 37 U/L Alkaline Phosphatase 108 U/L Total Creatine Kinase 100 U/L Creatine Kinase MB 1.4 ng/ml Creatine Kinase MB Ratio 1.4 Troponin I < 0.015 ng/ml Total Protein 7.5 gm/dl Albumin 3.2 gm/dl Lipase 113 U/L Bedside Hemoglobin 13.6 g/dl Bedside Hematocrit 40 % Bedside Sodium 142 mEq/L Bedside Potassium 3.7 mEq/L Bedside Chloride 107 mEq/L Bedside Total CO2 19 mEq/l Bedside Blood Urea Nitrogen 23 mg/dl Bedside Creatinine 1.6 mg/dl Bedside Glucose (other) 151 mg/dl Bedside Ionized Calcium (Araceli) 1.10 mmol/l Diagnostic Results Radiological imaging and reports were reviewed by myself. Radiologist's Interpretation as follows: CHEST ONE VIEW PORTABLE CLINICAL HISTORY: 67 years-old Male presenting with cardiac assessment. TECHNIQUE: PICC to COMPARISON: 10/10/2017. FINDINGS: Median sternotomy wires and extensive mediastinal surgical clips noted. Cardiomediastinal silhouette otherwise normal. Lungs and pleural spaces clear. Osseous structures normal. Upper abdomen normal. IMPRESSION: 1. No acute cardiopulmonary disease. Assessment & Plan (1) Acute posterior myocardial infarction (2) S/P PTCA (percutaneous transluminal coronary angioplasty) (3) Hypertension Reason Critically Ill: 67-year-old male with acute posterior ST segment elevation myocardial infarction requiring angioplasty with ELAINE 2 to the circumflex artery requiring close cardiac monitoring. On Integrilin drip. Neuro - * CAM ICU: NEGATIVE * RIGHT Shoulder Pain - initially c/o RIGHT wrist pain with radiation to the elbow and shoulder. Known h/o Carpal Tunnel Syndrome. * Will treat with Fentanyl q2h PRN for this pain. Will watch for responsiveness to pain Rx alone as this could be distracting from persistent cardiac ischemia or reocclusion injury. * On [place] 10 at home - will restart tomorrow AM if no worsening symptoms overnight. * Neuro checks per protocol while on Integrilin gtt. Cardiac - * Posterior Acute STEMI - * PTCA w/ successful deployment of DESx2 to the proximal circumflex artery. * Initially received Brilinta loading in the ED. * Proximal thrombus to proximal stent noted w/ ballooning of thrombus - Integrilin gtt started. * Continue Integrilin gtt for 12hrs per interventionalist. * Transition to DAPT - continue for 1 year. * Typical Post PA Rx - BB, Statin, STEFANIE, ASA/Plavix. * Relatively hypotensive - ?? 2/2 posterior PA injury. Restart BB/STEFANIE tomorrow AM as BP tolerates. * Echo ordered for tomorrow AM. * EKG w/ ST depression in V1/2 consistent w/ posterior STEMI. QTc 488. * Trend Troponins until peaked. * Monitor on Telemetry. * EKGs w/ any return of chest pain. * Appreciate Interventionalist's guidance. Respiratory - * No known h/o pulmonary disease. * Chronic cigarette smoker (~1-1.5 ppd) * Nicotine patch PRN. * Currently on 2L NC - no O2 use at home. Titrate off as tolerated. * Continuous Pulse Oximetry. GI - * GERD - continue Protonix PO * AHA Diet. RENAL/LYTES - * OSMANI w/ Cr of 1.6 when compared to 10/10/2017. * Received IVF boluses. * Will add NSS@75mL/hr. * At risk for post contrast nephropathy. * Will monitor. * Monitor electrolytes - replace appropriately. - * No Fischer Catheter at this point. ENDO - * No h/o DM - will trend BSGs - ISS per protocol. * No h/o Thyroid disease. HEME - * Stable H&H. * Will monitor closely in the setting of current Integrilin gtt. ID - * No current concerns for acute infection. * Anaplasmosis Diagnosis on 10/10/2017: * Completed 10 day course of Doxycycline as an outpatient. * Scheduled appointment with Dr. Ashford tomorrow (10/25). * ??Case management to set up outpatient appointment with Dr. Ashford upon discharge. * Trend fever curve. LINES/IV ACCESS - * PIVs intact. * RIGHT Groin Device in place. * Concerns for small hematoma upon arrival in the ICU - responded to 15 min direct pressure per Dr. Concepcion' direction. * Will monitor for bleeding. DVT PROPHYLAXIS - * Integrilin gtt. I have personally spent 40 minutes of critical care time in the direct management of this patient. This is a life/limb threatening event. This includes time spent evaluating patient, direct bedside care, chart review, placing orders, interpretation of diagnostic studies, discussion with consultants, patient, and family members, as well as other required patient management activities. This time is exclusive of all separately billable procedures, and teaching time and separate from and in addition to any other critical care service time. Thank you for this consultation allow us to be part of this patient's care. Please refer to my attending physician's documentation for any further recommendations. PA Physician Supervision Note: Patient was seen and evaluated this am. The case was discussed on am rounds. I agree with the findings and plan as documented in the note. - s/p ELAINE to Lcx without complications; Pain resolved, - small hematoma at the groin area without increase in size. - patient is on chronic opiates at home, s/p Fentanyl while here. - off Integrillin, Head CT normal done this am. At this point he is stable for transfer to [facility]; Will follow PRN. I have personally spent 35 minutes of critical care time in the direct management of this patient. This is a life/limb threatening event. This includes time spent evaluating patient, direct bedside care, chart review, placing orders, interpretation of diagnostic studies, discussion with consultants, patient, and family members, as well as other required patient management activities. This time is exclusive of all separately billable procedures, and teaching time and separate from and in addition to any other critical care service time. Documented By: Ras Mchugh
[2017-10-24 22:59] LABS: INR 1.1 (0.9-1.1); PARTIAL THROMBOPLASTIN RATIO 3.8; PROTHROMBIN TIME (PATIENT) 11.7 SECONDS (9.0-12.0)
--- NOTE | 2017-10-24 23:04 | CARDIOLOGY CONSULTATION ---
DATE OF CONSULTATION: 10/24/2017 CONSULTATION REQUESTED BY: Roosevelt Pedro MD. REASON FOR CONSULTATION: Heart alert/STEMI. HISTORY OF PRESENT ILLNESS: Mr. Fonseca is a 67-year-old man with a history of coronary artery disease status post single-vessel CABG with [place] to LAD in 2006 in the setting of NSTEMI previously noted resulted in ischemic cardiomyopathy, COPD, hyperlipidemia who presented today with acute onset of chest pain and was found to have a posterior ST elevations for which a heart alert was activated. The patient is followed by me as an outpatient and was last seen 2 months ago. At that time, he was doing reasonably well with some mild orthostatic symptoms and presyncope. Today, the patient states that he was out blowing leaves all day without any limiting symptoms. He sat down inside and developed severe substernal chest pain radiating to his arms. States that occasionally he would get some pain like this in the past but this persisted and did not relieve even with multiple sublingual nitroglycerin at home and as a result called EMS. The patient states he had in total about 2 hours of chest pain before it resolved in the ED with sublingual nitroglycerin and IV morphine. At time of interview, had just residual mild pain in his arm. Initial EKG on presentation showed deep ST depressions in V1, V2 and V3, which were new and subtle elevations in III and AVF. His initial point of care troponin was negative. He was hemodynamically stable. As patient was still having some chest discomfort and new EKG findings, decision was made to proceed with angiography. The patient underwent angiography via right common femoral artery. He was found to have 90% mid circumflex lesion with a subtotal occlusion and a large proximal OM3. He underwent PCI with placement of 2 large drug-eluting stent overlapped with good angiographic result. He was placed on Integrilin for some evidence of thrombus intrastent procedure. Following procedure, he was largely chest pain free and was having some general gross by discomfort. PAST MEDICAL HISTORY: 1. Coronary artery disease status post [place] to LAD in 2006. 2. Ischemic cardiomyopathy. 3. COPD. 4. Hyperlipidemia. 5. GERD. 6. Chronic low back pain. 7. Obstructive sleep apnea. 8. Anxiety. PAST SURGICAL HISTORY: He has had prior colonoscopy. SOCIAL HISTORY: Denies alcohol. Reports intermittent ongoing tobacco use. He is currently . . Lives at home, not working currently. HOME MEDICATIONS: Include citalopram, aspirin 81, sublingual nitroglycerin, Advair Diskus, omeprazole, simvastatin and hydrocodone/acetaminophen. FAMILY HISTORY: Denies premature coronary artery disease. PHYSICAL EXAMINATION: VITAL SIGNS: Temperature 36.6, pulse 66, blood pressure 115/89. He is satting 98% on room air. GENERAL: The patient appears comfortable. Post-procedure no acute distress. HEENT: His sclerae are anicteric. His oropharynx is clear with poor dentition. NECK: Supple with no lymphadenopathy. LUNGS: Clear to auscultation bilaterally. HEART: He was bradycardic but had regular rhythm with no appreciable murmurs, rubs or gallops. ABDOMEN: Soft, nontender, nondistended with positive bowel sounds. EXTREMITIES: Warm. He had intact distal pulses including 2+ radial pulses and 2+ femoral pulses bilaterally. SKIN: Showed no rashes or lesions. NEUROLOGIC: Nonfocal. PSYCHIATRIC: Alert, oriented and appropriate. LABORATORY DATA: Sodium 140, potassium 3.7, BUN 24, creatinine of 1.6. LFTs were within normal limits. Initial troponin was negative. Hemoglobin of 13.2, white blood cell count of 12.2. Chest x-ray showed no acute cardiopulmonary process. IMPRESSION AND PLAN: 1. Acute posterior ST elevation myocardial ischemia/occluded circumflex/obtuse marginal 3. Status post primary percutaneous coronary intervention with 2 drug-eluting stents and excellent chronic multivessel disease with occluded mid left anterior descending artery and proximal right coronary artery, patent left internal mammary artery to left anterior descending artery. 3. Prior ischemic cardiomyopathy. 4. Hyperlipidemia. 5. Chronic obstructive pulmonary disease. 6. Ongoing tobacco. Mr. Fonseca is now status post primary PCI for his posterior STEMI. He was successfully revascularized and is now largely chest pain free with resolution of his ST changes on EKG. Going forward, will plan to admit patient to ICU for continued monitoring. We will trend his troponins until peaks and plan a repeat echocardiogram in the a.m. The patient was started on Integrilin for intrastent thrombus post procedure and we will plan to continue for 12 hours. He was loaded with ticagrelor in the superintendent [facility] laboratory and will plan to continue while in hospital. We will likely transition to clopidogrel on discharge. Otherwise, will attempt to start on low dose beta colton and STEFANIE inhibitor. He has been intolerant of blood pressure medicines at home recently. Continue high intensity statin. We will continue to follow while in the hospital. Thank you for allowing us to participate in the care of this patient. JUANA
[2017-10-24] MEDS ORDERED: INFLUENZA VIRUS QUAD VACCINE 0.5 ML SYR IM. ONE (23:15)
[2017-10-24] MEDS ORDERED: PNEUMOCOCCAL POLYSACCHARIDES 25 MCG/0.5 ML VIAL/SYR IM. ONE (23:15)
[2017-10-24] MEDS ORDERED: PNEUMOCOCCAL ADMINISTRATION CHARGE ONE (23:15)
[2017-10-24] MEDS ORDERED: INFLUENZA ADMINISTRATION CHARGE ONE (23:15)
[2017-10-24] MEDS: FENTANYL CITRATE INJ 50 MCG/1 ML 2 ML VIAL IV PRN (23:32)
[2017-10-24] MEDS: SODIUM CHLORIDE 0.9% 1000ML 1,000 ML IV SCH (23:34)
[2017-10-25] VITALS (12 sets, daily range): BP systolic 100–124; BP diastolic 58–82; PULSE 66–82; TEMP 36.4–37.1; O2SAT 94–98
[2017-10-25] MEDS ORDERED: NICOTINE 21 MG/24 HR TDSY TD PRN (00:45)
--- NOTE | 2017-10-25 02:02 | EMERGENCY ROOM VISIT NOTE ---
History Report prepared by Mary: Leesa Chadwick Under the Supervision of: Dr. Wilfredo Moran M.D. First contact with patient: 19:26 Stated Complaint: CHEST PAIN History of Present Illness The patient is a 67 year old male who presents to the Emergency Room with complaints of constant chest pain beginning 2 hours ago. 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 He patient reports back pain and left shoulder and arm pain. The patient has a history of cardiac bypass surgery 5 years ago at [place]. He reports taking one nitroglycerin prior to arrival with no relief. EMS gave the patient 3 nitroglycerin which brought his pain from a 10/ 10 to a 8/10. Presently, the patient rates his pain as a 6/10. Pt denies LOC, headache, fevers, chills, diaphoresis, visual changes, neck pain, breathing difficulties, nausea, vomiting, abdominal pain, melena, hematochezia, urinary symptoms, numbness, weakness, lymphadenopathy, rash, or other complaints. Source of History: patient Onset: 2 hours ago Position: chest Symptom Intensity: 6/10 Timing: constant Associated Symptoms: + chest pain, + back pain Note: Pt notes left shoulder and arm pain. Review of Systems See HPI for pertinent positives and negatives. A total of ten systems were reviewed and were otherwise negative. Past Medical & Surgical Medical Problems: (1) AMI (acute myocardial infarction) (2) Cholelithiasis NOS (3) Diverticulosis of colon (without mention of hemorrhage) (4) Esophageal reflux (5) Hypertension Family History Patient reports no known family medical history. Social History Smoking Status: Current Every Day Smoker Marital Status: Housing Status: lives with significant other Current/Historical Medications Scheduled Aspirin (Aspirin Ec), 81 MG PO DAILY Citalopram (Citalopram Hydrobromide), 40 MG PO DAILY Metoprolol Tartrate (Lopressor), 25 MG PO BID Nitroglycerin (Nitrostat), 0.4 MG UT PRN Omeprazole (Prilosec), 20 MG PO DAILY Scheduled PRN Benzonatate (Tessalon Perles), 200 MG PO TID PRN for Cough Hydrocodone/Acetaminophen 10MG/325MG ([place] 10MG/325MG), 1 TAB PO Q6H PRN for Pain Allergies Coded Allergies: No Known Allergies (Verified , 02/21/11) Physical Exam Vital Signs Date Time Temp Pulse Resp B/P (MAP) Pulse Ox O2 Delivery O2 Flow Rate FiO2 10/24/17 21:40 36.5 69 20 114/81 99 Nasal Cannula 2.0 10/24/17 21:40 36.5 63 14 117/76 (90) 96 Nasal Cannula 2.0 10/24/17 21:29 61 18 140/89 (106) 98 Room Air 10/24/17 21:19 66 18 115/89 (98) 98 Room Air 10/24/17 19:50 96 Room Air 10/24/17 19:49 96 Room Air 10/24/17 19:43 72 10/24/17 19:37 36.6 77 20 126/70 96 Room Air 10/24/17 19:31 96 Room Air Physical Exam GENERAL: Awake, alert, uncomfortable ill-appearing, in no distress HENT: Normocephalic, atraumatic. Oropharynx unremarkable. EYES: Normal conjunctiva. Sclera non-icteric. NECK: Supple. No nuchal rigidity. FROM. No JVD. RESPIRATORY: Clear to auscultation. CARDIAC: Regular rate, normal rhythm. Extremities warm and well perfused. Pulses equal. ABDOMEN: Soft, non-distended. No tenderness to palpation. No rebound or guarding. No masses. RECTAL: Deferred. MUSCULOSKELETAL: Chest examination reveals no tenderness. The back is symmetrical on inspection without obvious abnormality. There is no CVA tenderness to palpation. No joint edema. LOWER EXTREMITIES: Calves are equal size bilaterally and non-tender. No edema. No discoloration. NEURO: Normal sensorium. No sensory or motor deficits noted. SKIN: No rash or jaundice noted. Medical Decision & Procedures ER Provider Diagnostic Interpretation: Radiology results as stated below per my review and radiologist interpretation: CHEST ONE VIEW PORTABLE FINDINGS: Median sternotomy wires and extensive mediastinal surgical clips noted. Cardiomediastinal silhouette otherwise normal. Lungs and pleural spaces clear. Osseous structures normal. Upper abdomen normal. IMPRESSION: 1. No acute cardiopulmonary disease. Electronically signed by: Johan Bhakta M.D. Laboratory Results 10/24/17 19:36 Red Blood Count 4.10, Mean Corpuscular Volume 93.9, Mean Corpuscular Hemoglobin 32.2, Mean Corpuscular Hemoglobin Concent 34.3, Mean Platelet Volume 9.7, Neutrophils (%) (Auto) 48.4, Lymphocytes (%) (Auto) 45.2, Monocytes (%) (Auto) 5.4, Eosinophils (%) (Auto) 0.6, Basophils (%) (Auto) 0.2, Neutrophils # (Auto) 5.88, Lymphocytes # (Auto) 5.51, Monocytes # (Auto) 0.66, Eosinophils # (Auto) 0.07, Basophils # (Auto) 0.03 10/24/17 19:36 Test 10/24/17 19:35 10/24/17 19:36 10/24/17 19:41 White Blood Count 12.18 K/uL (4.8-10.8) Red Blood Count 4.10 M/uL (4.7-6.1) Hemoglobin 13.2 g/dL (14.0-18.0) Hematocrit 38.5 % (42-52) Mean Corpuscular Volume 93.9 fL (80-100) Mean Corpuscular Hemoglobin 32.2 pg (25-34) Mean Corpuscular Hemoglobin Concent 34.3 g/dl (32-36) Platelet Count 379 K/uL (130-400) Mean Platelet Volume 9.7 fL (7.4-10.4) Neutrophils (%) (Auto) 48.4 % Lymphocytes (%) (Auto) 45.2 % Monocytes (%) (Auto) 5.4 % Eosinophils (%) (Auto) 0.6 % Basophils (%) (Auto) 0.2 % Neutrophils # (Auto) 5.88 K/uL (1.4-6.5) Lymphocytes # (Auto) 5.51 K/uL (1.2-3.4) Monocytes # (Auto) 0.66 K/uL (0.11-0.59) Eosinophils # (Auto) 0.07 K/uL (0-0.5) Basophils # (Auto) 0.03 K/uL (0-0.2) RDW Standard Deviation 46.1 fL (36.4-46.3) RDW Coefficient of Variation 13.4 % (11.5-14.5) Immature Granulocyte % (Auto) 0.2 % Immature Granulocyte # (Auto) 0.03 K/uL (0.00-0.02) Red Blood Cell Morphology Unremarkable Est Creatinine Clear Calc Drug Dose 54.2 ml/min Estimated GFR () 49.4 Estimated GFR (Non- 42.6 BUN/Creatinine Ratio 14.5 (10-20) Calcium Level 9.3 mg/dl (8.5-10.1) Magnesium Level 1.8 mg/dl (1.8-2.4) Total Bilirubin 0.4 mg/dl (0.2-1) Direct Bilirubin 0.1 mg/dl (0-0.2) Aspartate Amino Transf (AST/SGOT) 22 U/L (15-37) Alanine Aminotransferase (ALT/SGPT) 37 U/L (12-78) Alkaline Phosphatase 108 U/L (45-117) Total Creatine Kinase 100 U/L (39-308) Creatine Kinase MB 1.4 ng/ml (0.5-3.6) Creatine Kinase MB Ratio 1.4 (0-3.0) Total Protein 7.5 gm/dl (6.4-8.2) Albumin 3.2 gm/dl (3.4-5.0) Lipase 113 U/L (73-393) Bedside Hemoglobin 13.6 g/dl (14.0-18.0) Bedside Hematocrit 40 % (42-52) Bedside Sodium 142 mEq/L (135-144) Bedside Potassium 3.7 mEq/L (3.3-5.0) Bedside Chloride 107 mEq/L (101-112) Bedside Total CO2 19 mEq/l (24-31) Anion Gap 22.0 mmol/L (16-25) Bedside Blood Urea Nitrogen 23 mg/dl (7-18) Bedside Creatinine 1.6 mg/dl (0.6-1.3) Bedside Glucose (other) 151 mg/dl (70-99) Bedside Ionized Calcium (Araclei) 1.10 mmol/l (1.12-1.32) Medications Administered Medications (Trade) Dose Ordered Sig/Aashish Route Start Time Stop Time Status Last Admin Dose Admin Sodium Chloride 1,000 ml @ 999 mls/hr Q1H1M STAT IV 10/24/17 19:35 10/24/17 20:35 DC 10/24/17 19:47 999 MLS/HR Nitroglycerin (Nitrostat Tab) 0.4 mg Q5M PRN SL 10/24/17 19:45 10/24/17 22:11 DC 10/24/17 22:05 0.4 MG Fentanyl Citrate (Fentanyl Inj) 50 mcg NOW STAT IV 10/24/17 19:35 10/24/17 19:36 DC 10/24/17 19:48 50 MCG Midazolam HCl (Versed Inj) 2 mg STK-MED ONCE .ROUTE 10/24/17 19:55 10/24/17 19:56 DC 10/24/17 19:55 2 MG Heparin Sodium (Porcine) (Heparin Iv Bolus) 10,000 unit STK-MED ONCE .ROUTE 10/24/17 19:55 10/24/17 19:56 DC 10/24/17 19:55 10,000 UNIT Midazolam HCl (Versed Inj) 2 mg STK-MED ONCE .ROUTE 10/24/17 20:26 10/24/17 20:27 DC 10/24/17 20:26 2 MG Eptifibatide (Integrilin Inj) 40 mg STK-MED ONCE IV 10/24/17 21:06 10/24/17 21:07 DC 10/24/17 21:06 40 MG Eptifibatide (Integrilin Inj) 75 mg STK-MED ONCE IV 10/24/17 21:06 10/24/17 21:07 DC 10/24/17 21:06 75 MG Ticagrelor (Brilinta Tab) 180 mg STK-MED ONCE PO 10/24/17 21:27 10/24/17 21:28 DC 10/24/17 21:27 180 MG ECG Indication: chest pain Rate (beats per minute): 77 Rhythm: normal sinus Findings: ST elevation (Inferior posterior AK), no ectopy Comparison ECG Date: Second Right sided EKG: normal sinus 77bpm, inferior posterior ST elevation, no ectopy Change: Old EKG form 10/10/17: inferior posterior ST elevation is new ED Course 1928: The patient was evaluated in room A12B. A complete history and physical exam was performed. 1934: Ordered Fentanyl Citrate 50 mcg IV, Sodium Chloride 1000 ml @ 999 mls/hr IV. 1943: Creatine 1.6 hemoglobin 13.6, ISTAT otherwise unremarkable. 1944: Ordered Nitroglycerin 0.4 mg SL. 1947: Discussed the patient's case with Dr. Concepcion-Cardiology [facility]. He will evaluate the patient. 1951: I updated Dr. CookCardiology on the patient's [facility] report. The patient's pain is now down to a 4/10 and it is focal to his shoulder and arm. 2005: Discussed the patient's case with Dr. Hurtado. The patient will be evaluated for further treatment and disposition. 2006: I update the patient and he is feeling better. The patient is leaving for cardiac catheterization lab. Medical Decision Triage Nursing notes reviewed. The patient's presentation and history were concerning for chest pain. Etiologies such as cardiac ischemia, aortic dissection, pulmonary embolism, pneumonia, pneumothorax, musculoskeletal, infections, gastrointestinal, as well as others were entertained. The patient was evaluated. Prehospital ECG and first ECG performed in the emergency department was very concerning for ST elevation AK. The patient had received aspirin and nitroglycerin prehospital. He was given additional nitroglycerin and IV fentanyl here. He was feeling better. Upon review of the first ECG A heart alert was initiated. I discussed the case with Dr. Concepcion after he promptly presented to the emergency department for emergent evaluation of the situation. He agreed with the diagnosis of ST elevation AK and recommended cardiac catheterization for possible intervention. The patient was in agreement. Chest imaging as above. On reassessment he was feeling much better. The patient was taken emergently to the catheterization suite for further management of his ST elevation AK. I did discuss the case with internal medicine as they will need to assist with the admission process after the procedure. Medication Reconcilliation Current Medication List: was personally reviewed by me Blood Pressure Screening Patient's blood pressure: Elevated blood pressure Blood pressure disposition: Referred to PCP (evaluated by hospitalist) Consults Time Called: 1947 Consulting Physician: Dr. Concepcion- Cardiology Returned Call: 1947 Discussed the patient's case. He will evaluate the patient. Additional Consults: Time Called: 1951 Consulted Physician: Dr. Hurtado Returned Call: 1951 Additional Comments: Discussed the patient's case. The patient will be evaluated for further treatment and disposition. Impression Primary Impression: STEMI (ST elevation myocardial infarction) Critical Care I have personally spent greater than 30 minutes of critical care time in the direct management of this patient. This includes bedside care, interpretation of diagnostic studies, and testing, discussion with consultants, patient, and other required patient management activities. This 30 minutes is in excess of all separately billable procedures. Scribe Attestation The scribe's documentation has been prepared under my direction and personally reviewed by me in its entirety. I confirm that the note above accurately reflects all work, treatment, procedures, and medical decision making performed by me. Departure Information Dispostion Being Evaluated By Hospitalist Referrals Ronald Cervantes M.D. (PCP)
[2017-10-25] MEDS: FENTANYL CITRATE INJ 50 MCG/1 ML 2 ML VIAL IV PRN ×3 (02:34→06:44)
[2017-10-25] MEDS: BENZONATATE 100MG CAP PO PRN ×2 (02:40→08:30)
[2017-10-25] MEDS: EPTIFIBATIDE INJ 75 MG PREMIXED IV SCH (03:31)
[2017-10-25 06:21] LABS: HEMATOCRIT 36.6 % (42-52); MEAN CELL VOLUME 94.6 fL (80-100); MEAN CORPUSCULAR HGB CONC 33.9 g/dl (32-36); MEAN PLATELET VOLUME 9.4 fL (7.4-10.4); PLATELET COUNT 311 K/uL (130-400); RED BLOOD COUNT 3.87 M/uL (4.7-6.1); WHITE BLOOD COUNT 10.86 K/uL (4.8-10.8)
[2017-10-25] MEDS ORDERED: HYDROCODONE/ACETAMI 10/325 TAB PO PRN ×2 (06:45→16:30)
[2017-10-25] MEDS ORDERED: PERFLUTREN LIPID MICROSPHERE (DEFINITY) IV ONE (06:47)
[2017-10-25 06:48] LABS: BASO % 0.2 %; BASO ABS # 0.02 K/uL (0-0.2); COMPLETE YES; EOS % 0.2 %; IG% 0.2 %; LYMPH % 21.1 %; LYMPH ABS # 2.29 K/uL (1.2-3.4); MONO % 8.1 %; NEUT % 70.2 %
[2017-10-25 07:14] LABS: BUN/CREATININE RATIO 22.3 (10-20); CALCIUM 8.6 mg/dl (8.5-10.1); CHOLESTEROL/HDL RATIO 7.2; CREATININE 1.07 mg/dl (0.60-1.40); POTASSIUM 3.6 mmol/L (3.5-5.1)
[2017-10-25 07:33] LABS: ESTIMATED AVERAGE GLUCOSE 131 mg/dl; HA1C FLAG Normal (Normal)
--- NOTE | 2017-10-25 07:35 | DIAGNOSTIC IMAGING REPORT ---
HEAD WITHOUT CONTRAST (CT) CLINICAL HISTORY: 67 years-old Male with headache - on integrilin gtt s/p PTCA w/ DESx2. Acute headache TECHNIQUE: Multiple axial CT images of the head were obtained without contrast. A dose lowering technique was utilized adhering to the principles of ALARA. CT DOSE: 712.55 mGy.cm COMPARISON: CT head 01/06/2010. FINDINGS: No acute intracranial hemorrhage, midline shift, mass, large territorial ischemia or abnormal extra-axial collection. Ill-defined areas of low attenuation within the subcortical and periventricular white matter suggest mild chronic microvascular ischemic changes. The calvarium is intact. The mastoid air cells, and middle ear cavities are clear. Small air-fluid level within the left sphenoid sinus. IMPRESSION: 1. No acute intracranial abnormality. 2. Mild acute sphenoid sinusitis. The above report was generated using voice recognition software. It may contain grammatical, syntax or spelling errors. Electronically signed by: Hernan Jones M.D. 10/25/2017 7:33 AM Dictated Date/Time: 10/25/2017 7:30 AM
[2017-10-25] MEDS ORDERED: Integrelin infusion --> STOP ORDER ONE (08:00)
[2017-10-25] MEDS: LISINOPRIL 5 MG TAB PO SCH (08:32)
[2017-10-25] MEDS: PANTOprazole SOD 40 MG TAB PO SCH (08:32)
[2017-10-25] MEDS: CITALOPRAM 40 MG TAB PO SCH (08:33)
[2017-10-25] MEDS: ATORVASTATIN 40 MG TAB PO SCH (08:33)
[2017-10-25] MEDS: ASPIRIN 81 MG ECTAB PO SCH (08:33)
[2017-10-25] MEDS: METOPROLOL TARTRATE 25 MG TAB PO SCH ×2 (08:33→20:33)
[2017-10-25] MEDS: TICAGRELOR 90 MG TAB PO SCH ×2 (08:33→20:33)
--- NOTE | 2017-10-25 08:46 | ECHOCARDIOGRAM REPORT ---
*NOTICE TO RECEIVING [employer] This information is strictly Confidential and protected under [place] law. [place] law prohibits you from making any further disclosure of this information unless further disclosure is expressly permitted by the written consent of the person to whom it pertains or is authorized by law. A general authorization for the release of medical or other information is not sufficient for this purpose. Hospital accepts no responsibility if the information is made available to any other person, INCLUDING THE PATIENT. Interpretation Summary * Name: MARITA OWENS Study Date: 10/25/2017 06:19 AM BP: 123/78 mmHg * Patient Location: .MSICU\S\E111\S\1 HR: 70 * : 1950 (M/d/yyyy) Gender: Male Height: 72 in * Age: 67 yrs Ethnicity: CA Weight: 219 lb * Ordering Physician: Souleymane Concepcion * Referring Physician: Self, Referred * Performed By: Arleen Judd RCS * * Reason For Study: AMI * BSA: 2.2 m2 * -- Conclusions -- * 1. Normal LV size, mild concentric LVH. * 2. Mild LV dysfunction. LVEF 40-45%. Severe inferolateral hypokinesis. Moderate inferior hypokinesis. * 3. Normal RV size and function. * 4. Mild mitral regurgitation. * 5. Mild aortic regurgitation. * 6. Mild pulmonary hypertension. Est PASP 40-45 mmHg. * 7. Compared with prior study on 01/06/10: Inferolateral wall motion abnormality is new. Procedure Details * A complete two-dimensional transthoracic echocardiogram was performed (2D, M-mode, Doppler and color flow Doppler). * The study was technically difficult. * There were technical limitations due to patient'spoor positioning * A contrast injection of Definity was performed to improve assessment of LV function. * Contrast was injected into an intravenous site in the left arm. * One vial of Definity ultrasound contrast was diluted in normal saline to a total volume of 10 ml. A total of '2' ml of solution was administered during imaging. * Lot # [id number] of Definity utilized for procedure. * Expiration date NOV 14. * The attending nurse who injected the contrast agent was KIKE ROSARIO, RN. Left Ventricle * The left ventricle is grossly normal size. * There is mild concentric left ventricular hypertrophy. * Ejection Fraction = 40-45%. * There is severe posterior wall hypokinesis. * Inferior wall hypokinetic. Right Ventricle * The right ventricle is grossly normal size. * The right ventricular systolic function is normal as assessed by tricuspid annular plane systolic excursion (TAPSE) (normal >1.5 cm). Atria * The left atrial size is normal. * Right atrial size is normal. * No ASD detected; PFO is not assessed. Mitral Valve * The mitral valve is grossly normal. * Mitral stenosis is absent. * There is mild mitral regurgitation. Tricuspid Valve * The tricuspid valve is not well visualized. * There is trace tricuspid regurgitation. Aortic Valve * The aortic valve opens well. * Aortic valve sclerosis mild, without significant aortic valvular stenosis. * No hemodynamically significant valvular aortic stenosis. * Mild aortic regurgitation. Pulmonic Valve * The pulmonary valve is inadequately visualized, but the Doppler data is adequate for interpretation. * Pulmonic stenosis is absent. * There is no significant pulmonary regurgitation. Great Vessels * The aortic root and proximal ascending aorta are normal sized. Pericardium/Pleural * There is no pericardial effusion. Great Vessels * IVC < 2.1, <50% change with respiration. Est RA 8 mmHg. Mild pulmonary hypertension. Est PASP 40-45 mmHg. MMode 2D Measurements and Calculations IVSd 1.2 cm IVSs 1.6 cm LVIDd 4.6 cm LVIDs 3.2 cm LVPWd 1.1 cm LVPWs 1.2 cm IVS/LVPW 1.1 FS 31.4 % EDV(Teich) 97.3 ml ESV(Teich) 39.6 ml EF(Teich) 59.3 % EDV(cubed) 97.3 ml ESV(cubed) 31.5 ml EF(cubed) 67.7 % % IVS thick 37.3 % % LVPW thick 13.2 % LV mass(C)d 192.4 grams LV mass(C)dI 86.9 grams/m\S\2 LV mass(C)s 158.1 grams LV mass(C)sI 71.4 grams/m\S\2 SV(Teich) 57.7 ml SI(Teich) 26.1 ml/m\S\2 SV(cubed) 65.9 ml SI(cubed) 29.7 ml/m\S\2 Ao root diam 3.9 cm Ao root area 11.9 cm\S\2 ACS 2.1 cm LA dimension 3.6 cm LA/Ao 0.94 LVOT diam 2.0 cm LVOT area 3.1 cm\S\2 LVAd ap4 37.4 cm\S\2 LVLd ap4 8.2 cm EDV(MOD-sp4) 139.3 ml EDV(sp4-el) 144.8 ml LVAs ap4 27.9 cm\S\2 LVLs ap4 7.3 cm ESV(MOD-sp4) 88.1 ml ESV(sp4-el) 90.7 ml EF(MOD-sp4) 36.8 % EF(sp4-el) 37.3 % LVAd ap2 38.1 cm\S\2 LVLd ap2 8.3 cm EDV(MOD-sp2) 142.3 ml EDV(sp2-el) 148.8 ml LVAs ap2 27.6 cm\S\2 LVLs ap2 7.4 cm ESV(MOD-sp2) 83.9 ml ESV(sp2-el) 87.1 ml EF(MOD-sp2) 41.1 % EF(sp2-el) 41.4 % LVLd %diff 0.79 % EDV(MOD-bp) 141.1 ml LVLs %diff 1.8 % ESV(MOD-bp) 86.0 ml EF(MOD-bp) 39.1 % SV(MOD-sp4) 51.2 ml SI(MOD-sp4) 23.1 ml/m\S\2 SV(MOD-sp2) 58.4 ml SI(MOD-sp2) 26.4 ml/m\S\2 SV(MOD-bp) 55.1 ml SI(MOD-bp) 24.9 ml/m\S\2 SV(sp4-el) 54.1 ml SI(sp4-el) 24.4 ml/m\S\2 SV(sp2-el) 61.7 ml SI(sp2-el) 27.8 ml/m\S\2 Doppler Measurements and Calculations MV E max jesus 91.7 cm/sec MV A max jesus 64.2 cm/sec MV E/A 1.4 MV P1/2t max jesus 100.1 cm/sec MV P1/2t 104.9 msec MVA(P1/2t) 2.1 cm\S\2 MV dec slope 279.5 cm/sec\S\2 MV dec time 0.23 sec Ao V2 max 131.0 cm/sec Ao max PG 6.9 mmHg Ao max PG (full) 1.1 mmHg JAQUELINE(V,A) 2.8 cm\S\2 JAQUELINE(V,D) 2.8 cm\S\2 AI max jesus 337.7 cm/sec AI max PG 45.6 mmHg AI dec slope 121.0 cm/sec\S\2 AI P1/2t 817.3 msec LV V1 max PG 5.7 mmHg LV V1 max 119.7 cm/sec MR max jesus 452.0 cm/sec MR max PG 81.7 mmHg PA V2 max 88.0 cm/sec PA max PG 3.1 mmHg TR max jesus 291.5 cm/sec
--- NOTE | 2017-10-25 11:08 | Cardiology Follow-Up ---
Subjective Subjective Date of Service: Oct 25, 2017. Pt evaluation today including: conversation w/ patient, conversation w/ family , physical exam, chart review, lab review, review of studies, review of inpatient medication list Additional Details: Continues to endorse 4-10 arm pain. Denies any significant chest pain. Does endorse some pain at right groin site. Had a hematoma that was reduced overnight. Some question of confusion overnight prompting noncontrast head CT--no evidence of acute intracranial abnormalities. Tele reviewed--brief episodes of nonsustained VT, max 11 beats Echo reviewed--mild LV dysfunction, EF 40-45 percent with severe inferolateral hypokinesis Problem List Medical Problems: (1) Acute posterior myocardial infarction Status: Acute (2) Human anaplasmosis Status: Acute (3) Hypertension Status: Chronic (4) STEMI (ST elevation myocardial infarction) Status: Acute Surgical Problems: (1) S/P PTCA (percutaneous transluminal coronary angioplasty) Status: Acute Review of Systems Constitutional: No fever ENT: No hearing loss Respiratory: No cough Cardiac: No chest pain Abdomen: No pain Male : No dysuria Psychiatric: No depression symptoms Heme: + see HPI Endo: No fatigue Objective Vital Signs Last Vital Signs Documentation Date Time Temp Pulse Resp B/P (MAP) Pulse Ox O2 Delivery O2 Flow Rate FiO2 10/25/17 10:00 75 103/61 (75) 95 Room Air 10/25/17 08:00 36.8 30 10/25/17 08:00 2.0 Physical Exam: General Appearance: no apparent distress Neck: + pertinent finding (Oropharynx clear, poor dentition) Respiratory/Chest: lungs clear, normal breath sounds Cardiovascular: regular rate, rhythm, no edema, no murmur Abdomen: normal bowel sounds, non tender Extremities: + pertinent finding (Right femoral access site with ecchymosis, no hematoma, palpable pulse. Distal pulses intact) Neurologic/Psychiatric: alert, normal mood/affect Skin: normal color Assessment and Plan 1. Posterior STEMI/occluded circumflex/OM3--post primary PCI with 2 drug- eluting stents circumflex 2. Ischemic cardiomyopathy--EF 40-45 percent with severe inferolateral hypokinesis 3. Chronic multivessel coronary artery disease 4. Acute kidney injury 5. Chronic pain 6. Nonsustained VT 7. Ongoing tobacco abuse Chest pain has improved. Patient hemodynamically stable overnight. Only mild LV dysfunction on echo this a.m.. Integrilin infusion complete --continue to trend troponins until peak --continue dual antiplatelet therapy with Brilinta and aspirin -- plan to transition to clopidogrel likely tomorrow before discharge --continue high-intensity statin --start beta-colton, STEFANIE-inhibitor today --from a cardiac standpoint okay to transfer to telemetry today. --tentatively plan for discharge tomorrow. Medications: Current Inpatient Medications Medications (Trade) Dose Ordered Sig/Aashish Route Start Time Stop Time Status Last Admin Dose Admin Nitroglycerin (Nitrostat Tab) 0.4 mg UD PRN SL 10/24/17 21:45 11/23/17 21:44 10/24/17 22:17 0.4 MG Aspirin (Ecotrin Tab) 81 mg QAM PO 10/25/17 09:00 11/24/17 08:59 10/25/17 08:33 81 MG Atorvastatin Calcium (Lipitor Tab) 80 mg QAM PO 10/25/17 09:00 11/24/17 08:59 10/25/17 08:33 80 MG Metoprolol Tartrate (Lopressor Tab) 12.5 mg Q12 PO 10/25/17 09:00 11/24/17 08:59 10/25/17 08:33 12.5 MG Lisinopril (Zestril Tab) 5 mg QAM PO 10/25/17 09:00 11/24/17 08:59 10/25/17 08:32 5 MG Acetaminophen (Tylenol Tab) 650 mg Q4H PRN PO 10/24/17 21:45 11/23/17 21:44 Ticagrelor (Brilinta Tab) 90 mg BID PO 10/25/17 09:00 11/24/17 08:59 10/25/17 08:33 90 MG Benzonatate (Tessalon Perles Cap) 200 mg TID PRN PO 10/24/17 21:45 11/23/17 21:44 10/25/17 08:30 200 MG Citalopram Hydrobromide (celeXA TAB) 40 mg DAILY PO 10/25/17 09:00 11/24/17 08:59 10/25/17 08:33 40 MG Pantoprazole Sodium (Protonix Tab) 40 mg QAM PO 10/25/17 09:00 11/24/17 08:59 10/25/17 08:32 40 MG Fentanyl Citrate (Fentanyl Inj) 25 mcg Q2HWA PRN IV 10/24/17 23:15 11/07/17 23:14 10/25/17 06:44 25 MCG Sodium Chloride 1,000 ml @ 75 mls/hr [id number] IV 10/24/17 23:15 11/23/17 23:14 10/24/17 23:34 75 MLS/HR Nicotine (Nicoderm Cq 21MG Patch) 1 patch QAM PRN TD 10/25/17 00:45 11/24/17 00:44 Miscellaneous (Remove Nicoderm Patch) 1 ea DAILY@2100 PRN N/A 10/25/17 01:00 11/24/17 00:59 Acetaminophen/ Hydrocodone Bitart ([place] 10/325 Tab) 1 tab Q6HWA PRN PO 10/25/17 06:45 11/08/17 06:44 10/25/17 08:29 1 TAB Lab Results: 10/25/17 06:02 Red Blood Count 3.87, Mean Corpuscular Volume 94.6, Mean Corpuscular Hemoglobin 32.0, Mean Corpuscular Hemoglobin Concent 33.9, Mean Platelet Volume 9.4, Neutrophils (%) (Auto) 70.2, Lymphocytes (%) (Auto) 21.1, Monocytes (%) (Auto) 8.1, Eosinophils (%) (Auto) 0.2, Basophils (%) (Auto) 0.2, Neutrophils # (Auto) 7.63, Lymphocytes # (Auto) 2.29, Monocytes # (Auto) 0.88, Eosinophils # (Auto) 0.02, Basophils # (Auto) 0.02 10/25/17 06:02 Test 10/24/17 19:35 10/24/17 19:36 10/24/17 19:41 10/24/17 22:15 Blood Smear Review Red Blood Cell Morphology Unremarkable Magnesium Level 1.8 mg/dl (1.8-2.4) Total Bilirubin 0.4 mg/dl (0.2-1) Direct Bilirubin 0.1 mg/dl (0-0.2) Aspartate Amino Transf (AST/SGOT) 22 U/L (15-37) Alanine Aminotransferase (ALT/SGPT) 37 U/L (12-78) Alkaline Phosphatase 108 U/L (45-117) Total Creatine Kinase 100 U/L (39-308) Creatine Kinase MB 1.4 ng/ml (0.5-3.6) Creatine Kinase MB Ratio 1.4 (0-3.0) Total Protein 7.5 gm/dl (6.4-8.2) Albumin 3.2 gm/dl (3.4-5.0) Lipase 113 U/L (73-393) Bedside Hemoglobin 13.6 g/dl (14.0-18.0) Bedside Hematocrit 40 % (42-52) Bedside Sodium 142 mEq/L (135-144) Bedside Potassium 3.7 mEq/L (3.3-5.0) Bedside Chloride 107 mEq/L (101-112) Bedside Total CO2 19 mEq/l (24-31) Bedside Blood Urea Nitrogen 23 mg/dl (7-18) Bedside Creatinine 1.6 mg/dl (0.6-1.3) Bedside Glucose (other) 151 mg/dl (70-99) Bedside Ionized Calcium (Araceli) 1.10 mmol/l (1.12-1.32) Prothrombin Time 11.7 SECONDS (9.0-12.0) Prothromb Time International Ratio 1.1 (0.9-1.1) Activated Partial Thromboplast Time 99.3 SECONDS (21.0-31.0) Partial Thromboplastin Ratio 3.8 Hepatitis C Antibody Screen NEG (NEG) Test 10/25/17 06:02 10/25/17 06:31 White Blood Count 10.86 K/uL (4.8-10.8) Red Blood Count 3.87 M/uL (4.7-6.1) Hemoglobin 12.4 g/dL (14.0-18.0) Hematocrit 36.6 % (42-52) Mean Corpuscular Volume 94.6 fL (80-100) Mean Corpuscular Hemoglobin 32.0 pg (25-34) Mean Corpuscular Hemoglobin Concent 33.9 g/dl (32-36) Platelet Count 311 K/uL (130-400) Mean Platelet Volume 9.4 fL (7.4-10.4) Neutrophils (%) (Auto) 70.2 % Lymphocytes (%) (Auto) 21.1 % Monocytes (%) (Auto) 8.1 % Eosinophils (%) (Auto) 0.2 % Basophils (%) (Auto) 0.2 % Neutrophils # (Auto) 7.63 K/uL (1.4-6.5) Lymphocytes # (Auto) 2.29 K/uL (1.2-3.4) Monocytes # (Auto) 0.88 K/uL (0.11-0.59) Eosinophils # (Auto) 0.02 K/uL (0-0.5) Basophils # (Auto) 0.02 K/uL (0-0.2) RDW Standard Deviation 46.9 fL (36.4-46.3) RDW Coefficient of Variation 13.6 % (11.5-14.5) Immature Granulocyte % (Auto) 0.2 % Immature Granulocyte # (Auto) 0.02 K/uL (0.00-0.02) Anion Gap 8.0 mmol/L (3-11) Est Creatinine Clear Calc Drug Dose 75.6 ml/min Estimated GFR () 84.0 Estimated GFR (Non- 72.5 BUN/Creatinine Ratio 22.3 (10-20) Estimated Average Glucose 131 mg/dl Hemoglobin A1c 6.2 % (4.5-5.6) Calcium Level 8.6 mg/dl (8.5-10.1) Troponin I 22.000 ng/ml (0-0.045) Triglycerides Level 160 mg/dl (0-150) Cholesterol Level 186 mg/dl (0-200) HDL Cholesterol 26 mg/dl LDL Cholesterol, Calculated 128 mg/dl VLDL Cholesterol, Calculated 32 mg/dl Cholesterol/HDL Ratio 7.2 Bedside Glucose 118 mg/dl (70-99) Date/Time Source Procedure Growth Status 10/24/17 22:30 Nasal MRSA DNA Surveillance Screen - Final Specimen Negative for MRSA by DNA Probe Complete
[2017-10-25] MEDS ORDERED: DICLOFENAC SOD 1% GEL 100 GM TUBE EXT PRN (11:30)
[2017-10-25] MEDS ORDERED: OXYCODONE HCL IR 5 MG TAB (IMMEDIATE RELEASE) PO PRN (11:30)
[2017-10-25] MEDS ORDERED: HYDROmorphone INJ 1 MG/ML SYR IV PRN (11:30)
[2017-10-25] MEDS ORDERED: HYDROmorphone INJ 0.5 MG/0.5 ML SYR IV PRN (11:30)
[2017-10-25] MEDS: SODIUM CHLORIDE 0.9% 1000ML 1,000 ML IV SCH ×2 (12:36→20:27)
[2017-10-25] MEDS ORDERED: ACETAMINOPHEN 500 MG TAB PO SCH (14:00)
--- NOTE | 2017-10-25 16:09 | History and Physical ---
History & Physical Date & Time of Service: Oct 25, 2017 at 07:48 Chief Complaint: AMI Primary Care Physician: Ronald Cervantes M.D. 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 Patient was seen post procedure he was having significant right wrist pain this was evaluated by repeat EKG without any acute EKG changes other than what was present at baseline he was given opiate pain medicine with relief this is her chronic arthritic complaint for this patient. The patient has both about to stop smoking, he understands he needs to take dual antiplatelet therapy. Past Medical/Surgical History Medical Problems: (1) Cholelithiasis NOS Status: Chronic (2) Diverticulosis of colon (without mention of hemorrhage) Status: Chronic (3) Esophageal reflux Status: Chronic (4) Hypertension Status: Chronic Family History Patient reports no known family medical history. Social History Smoking Status: Current Every Day Smoker Smokeless Tobacco Use: No Alcohol Use: none Drug Use: none Marital Status: Occupational Status: other Immunizations History of Influenza Vaccine: Unknown Influenza Vaccine Date: Jan 07, 2010 History of Tetanus Vaccine?: Unknown History of Pneumococcal: Unknown History of Hepatitis B Vaccine: Unknown Multi-Drug Resistant Organisms History of MDRO: No Allergies Coded Allergies: No Known Allergies (Verified , 02/21/11) Home Medications Scheduled Aspirin (Aspirin Ec), 81 MG PO DAILY Citalopram (Citalopram Hydrobromide), 40 MG PO DAILY Metoprolol Tartrate (Lopressor), 25 MG PO BID Nitroglycerin (Nitrostat), 0.4 MG UT PRN Omeprazole (Prilosec), 20 MG PO DAILY Scheduled PRN Benzonatate (Tessalon Perles), 200 MG PO TID PRN for Cough Hydrocodone/Acetaminophen 10MG/325MG ([place] 10MG/325MG), 1 TAB PO Q6H PRN for Pain Review of Systems ROS: well nourished well developed No double vision blurry vision No problems with speech or swallowing Previous chest pain radiating to right arm No Wheezing or breathing issues No abdominal pain nausea vomiting diarrhea changes in appetite or weight No burning urine urine frequency or changes in color Significant right wrist pain some low back pain also No skin rashes or oral lesions No unusual bruising or bleeding No numbness or loss of strength No changes in memory or confusion Physical Exam Vital Signs Date Time Temp Pulse Resp B/P (MAP) Pulse Ox O2 Delivery O2 Flow Rate FiO2 10/25/17 04:15 96 Nasal Cannula 2.0 10/25/17 04:00 36.7 66 23 123/78 (93) 97 Nasal Cannula 2.0 10/25/17 03:00 66 23 124/82 (96) 98 Nasal Cannula 2.0 10/25/17 02:00 36.4 66 20 103/58 (73) 98 Nasal Cannula 2.0 10/25/17 00:01 96 Nasal Cannula 2.0 10/24/17 23:45 62 22 110/72 (85) 98 Nasal Cannula 2.0 10/24/17 23:30 36.6 63 23 101/72 (82) 96 Nasal Cannula 2.0 10/24/17 23:00 62 20 112/66 (81) 97 Nasal Cannula 2.0 10/24/17 22:30 36.6 62 20 104/67 (79) 97 Nasal Cannula 2.0 10/24/17 22:01 69 20 114/81 (92) 99 Nasal Cannula 2.0 10/24/17 21:45 64 22 120/81 (94) 97 Nasal Cannula 2.0 10/24/17 21:40 36.5 69 20 114/81 99 Nasal Cannula 2.0 10/24/17 21:40 36.5 63 14 117/76 (90) 96 Nasal Cannula 2.0 10/24/17 21:29 61 18 140/89 (106) 98 Room Air 10/24/17 21:19 66 18 115/89 (98) 98 Room Air 10/24/17 19:50 96 Room Air 10/24/17 19:49 96 Room Air 10/24/17 19:43 72 10/24/17 19:37 36.6 77 20 126/70 96 Room Air 10/24/17 19:31 96 Room Air General Appearance: WD/WN, + mild distress Head: normocephalic, atraumatic Eyes: normal inspection, PERRL ENT: hearing grossly normal, pharynx normal Respiratory/Chest: chest non-tender, lungs clear, normal breath sounds Cardiovascular: regular rate, rhythm, no murmur Abdomen/GI: normal bowel sounds, non tender, soft Genitourinary - Male: + pertinent finding (right groin site was inspected there is no bruit heard or abnormal pulsations) Back: no CVA tenderness, no muscle spasm Extremities/Musculoskelatal: no pedal edema, normal range of motion Neurologic/Psych: alert, oriented x 3 Diagnostics Laboratory Results Results Past 24 Hours Test 10/24/17 19:35 10/24/17 19:36 10/24/17 19:41 10/24/17 22:15 Range/Units White Blood Count 12.18 4.8-10.8 K/uL Red Blood Count 4.10 4.7-6.1 M/uL Hemoglobin 13.2 14.0-18.0 g/dL Hematocrit 38.5 42-52 % Mean Corpuscular Volume 93.9 80-100 fL Mean Corpuscular Hemoglobin 32.2 25-34 pg Mean Corpuscular Hemoglobin Concent 34.3 32-36 g/dl Platelet Count 379 130-400 K/uL Mean Platelet Volume 9.7 7.4-10.4 fL Neutrophils (%) (Auto) 48.4 % Lymphocytes (%) (Auto) 45.2 % Monocytes (%) (Auto) 5.4 % Eosinophils (%) (Auto) 0.6 % Basophils (%) (Auto) 0.2 % Neutrophils # (Auto) 5.88 1.4-6.5 K/uL Lymphocytes # (Auto) 5.51 1.2-3.4 K/uL Monocytes # (Auto) 0.66 0.11-0.59 K/uL Eosinophils # (Auto) 0.07 0-0.5 K/uL Basophils # (Auto) 0.03 0-0.2 K/uL RDW Standard Deviation 46.1 36.4-46.3 fL RDW Coefficient of Variation 13.4 11.5-14.5 % Immature Granulocyte % (Auto) 0.2 % Immature Granulocyte # (Auto) 0.03 0.00-0.02 K/uL Red Blood Cell Morphology Unremarkable Sodium Level 140 136-145 mmol/L Potassium Level 3.7 3.5-5.1 mmol/L Chloride Level 107 98-107 mmol/L Carbon Dioxide Level 21 21-32 mmol/L Anion Gap 12.0 22.0 16-25 mmol/L Blood Urea Nitrogen 24 7-18 mg/dl Creatinine 1.66 0.60-1.40 mg/dl Est Creatinine Clear Calc Drug Dose 54.2 ml/min Estimated GFR () 49.4 Estimated GFR (Non- 42.6 BUN/Creatinine Ratio 14.5 10-20 Random Glucose 147 70-99 mg/dl Calcium Level 9.3 8.5-10.1 mg/dl Magnesium Level 1.8 1.8-2.4 mg/dl Total Bilirubin 0.4 0.2-1 mg/dl Direct Bilirubin 0.1 0-0.2 mg/dl Aspartate Amino Transf (AST/SGOT) 22 15-37 U/L Alanine Aminotransferase (ALT/SGPT) 37 12-78 U/L Alkaline Phosphatase 108 45-117 U/L Total Creatine Kinase 100 39-308 U/L Creatine Kinase MB 1.4 0.5-3.6 ng/ml Creatine Kinase MB Ratio 1.4 0-3.0 Troponin I < 0.015 2.630 0-0.045 ng/ml Total Protein 7.5 6.4-8.2 gm/dl Albumin 3.2 3.4-5.0 gm/dl Lipase 113 73-393 U/L Bedside Hemoglobin 13.6 14.0-18.0 g/dl Bedside Hematocrit 40 42-52 % Bedside Sodium 142 135-144 mEq/L Bedside Potassium 3.7 3.3-5.0 mEq/L Bedside Chloride 107 101-112 mEq/L Bedside Total CO2 19 24-31 mEq/l Bedside Blood Urea Nitrogen 23 7-18 mg/dl Bedside Creatinine 1.6 0.6-1.3 mg/dl Bedside Glucose (other) 151 70-99 mg/dl Bedside Ionized Calcium (Araceli) 1.10 1.12-1.32 mmol/l Prothrombin Time 11.7 9.0-12.0 SECONDS Prothromb Time International Ratio 1.1 0.9-1.1 Activated Partial Thromboplast Time 99.3 21.0-31.0 SECONDS Partial Thromboplastin Ratio 3.8 Hepatitis C Antibody Screen NEG NEG Test 10/25/17 00:25 10/25/17 06:02 10/25/17 06:31 Range/Units Bedside Glucose 122 118 70-99 mg/dl White Blood Count 10.86 4.8-10.8 K/uL Red Blood Count 3.87 4.7-6.1 M/uL Hemoglobin 12.4 14.0-18.0 g/dL Hematocrit 36.6 42-52 % Mean Corpuscular Volume 94.6 80-100 fL Mean Corpuscular Hemoglobin 32.0 25-34 pg Mean Corpuscular Hemoglobin Concent 33.9 32-36 g/dl Platelet Count 311 130-400 K/uL Mean Platelet Volume 9.4 7.4-10.4 fL Neutrophils (%) (Auto) 70.2 % Lymphocytes (%) (Auto) 21.1 % Monocytes (%) (Auto) 8.1 % Eosinophils (%) (Auto) 0.2 % Basophils (%) (Auto) 0.2 % Neutrophils # (Auto) 7.63 1.4-6.5 K/uL Lymphocytes # (Auto) 2.29 1.2-3.4 K/uL Monocytes # (Auto) 0.88 0.11-0.59 K/uL Eosinophils # (Auto) 0.02 0-0.5 K/uL Basophils # (Auto) 0.02 0-0.2 K/uL RDW Standard Deviation 46.9 36.4-46.3 fL RDW Coefficient of Variation 13.6 11.5-14.5 % Immature Granulocyte % (Auto) 0.2 % Immature Granulocyte # (Auto) 0.02 0.00-0.02 K/uL Sodium Level 139 136-145 mmol/L Potassium Level 3.6 3.5-5.1 mmol/L Chloride Level 106 98-107 mmol/L Carbon Dioxide Level 25 21-32 mmol/L Anion Gap 8.0 3-11 mmol/L Blood Urea Nitrogen 24 7-18 mg/dl Creatinine 1.07 0.60-1.40 mg/dl Est Creatinine Clear Calc Drug Dose 75.6 ml/min Estimated GFR () 84.0 Estimated GFR (Non- 72.5 BUN/Creatinine Ratio 22.3 10-20 Random Glucose 113 70-99 mg/dl Estimated Average Glucose 131 mg/dl Hemoglobin A1c 6.2 4.5-5.6 % Calcium Level 8.6 8.5-10.1 mg/dl Troponin I 22.000 0-0.045 ng/ml Triglycerides Level 160 0-150 mg/dl Cholesterol Level 186 0-200 mg/dl HDL Cholesterol 26 mg/dl LDL Cholesterol, Calculated 128 mg/dl VLDL Cholesterol, Calculated 32 mg/dl Cholesterol/HDL Ratio 7.2 Microbiology Results 10/24/17 MRSA DNA Surveillance Screen - Final, Complete Specimen Negative for MRSA by DNA Probe other (sinus rhythm with anterior ST depression and T wave inversion) Impression Assessment and Plan 67-year-old male with acute posterior ST segment elevation myocardial infarction requiring angioplasty with ELAINE 2 to the circumflex artery previous [place] in 07 and current smoking Cardiac -Posterior Acute STEMI - * PTCA w/ successful deployment of DESx2 to the proximal circumflex artery. * Initially received Brilinta, will be discharged on dual antiplatelet therapy , BBlocker( was on metoprolol pre hospital) and statin, councelled about smoking cessation.. GERD - continue Protonix PO OSMANI w/ Cr of 1.6, IVF boluses is at risk for post contrast nephropathy. ENDO - No h/o DM - will trend BSGs - ISS per protocol. Anaplasmosis Diagnosis on 10/10/2017, Completed 10 day course of Doxycycline outpatient infectious disease follow-up is arranged Advanced Directives Existing Living Will: Yes Existing Power of Foundry Operator: Yes VTE Prophylaxis VTE Risk Assessment Done? Y/N: Yes Risk Level: Moderate
[2017-10-25] MEDS ORDERED: CHLORDIAZEPOXIDE 25 MG CAP PO PRN (16:30)
[2017-10-25] MEDS ORDERED: CHLORDIAZEPOXIDE 25 MG CAP PO SCH (17:00)
[2017-10-25 19:50] LABS: URINE APPEARANCE CLEAR (CLEAR); URINE BILIRUBIN NEG (NEG); URINE COLOR DK YELLOW; URINE NITRITE NEG (NEG); URINE PH 5.5 (4.5-7.5); URINE SPECIFIC GRAVITY 1.028 (1.000-1.030); UROBILINOGEN NEG (NEG)
[2017-10-25 19:56] LABS: MANUAL MICROSCOPIC REQUIRED? NO; REVIEW REQ? NO
--- NOTE | 2017-10-25 20:15 | Progress Note ---
Post ICU Progress Note Date & Time Oct 25, 2017 at 20:13 Vital Signs Vital Signs Past 12 Hours Date Time Temp Pulse Resp B/P (MAP) Pulse Ox O2 Delivery O2 Flow Rate FiO2 10/25/17 19:46 36.7 82 18 109/67 (81) 94 Room Air 10/25/17 16:00 Room Air 10/25/17 15:27 36.7 74 22 100/62 (75) 96 Room Air 10/25/17 12:51 36.8 67 20 105/68 (80) 95 Room Air 10/25/17 12:00 Room Air 10/25/17 12:00 36.5 69 14 107/60 (76) 97 Room Air 10/25/17 10:00 75 103/61 (75) 95 Room Air Notes Mental Status: alert / awake Nausea / Vomiting: adequately controlled Pain: adequately controlled Airway Patency, RR, SpO2: stable & adequate BP & HR: stable & adequate Patient is a 67-year-old male who was admitted to the ICU last evening status post PTCA with ELAINE 2. Patient received Tylenol throughout the night secondary to complaints of RIGHT arm pain with great response. He's had no return of chest discomfort. Earlier this morning, the patient did complain of an intense headache while on Integrilin drip. Because of this, a CT scan was ordered which was found to be unremarkable. The patient is currently complaining of some upper back pain which he describes chronic in nature. He reports that the [place] has helped and he no longer has pain in his RIGHT arm or chest. Patient is hopeful for discharge tomorrow. He offers no other complaints at this time. Of note, outpatient follow-up was apparently addressed with infectious disease. Consider outpatient follow up in 1 to 2 weeks with: Cardiology, PCP, ID Repeat imaging needed: Per primary service Follow up cultures: N/A Reviewed progress notes, labs, and inpatient medication list Continue current management Additional recommendations: None at this time. Thank you for allowing us to participate in the care of this patient. At this time, Critical Care Services will sign off. Please feel free to reconsult as needed.
[2017-10-25] MEDS: HEPARIN SOD 5000 UNIT/0.5 ML CARP SQ SCH (20:35)
[2017-10-26] VITALS: O2SAT 95
[2017-10-26 03:20] VITALS: BP 101/73; PULSE 78; TEMP 36.7; O2SAT 96
[2017-10-26 04:00] VITALS: O2SAT 96
[2017-10-26 07:08] LABS: BASO % 0.1 %; BASO ABS # 0.01 K/uL (0-0.2); COMPLETE YES; EOS % 0.2 %; IG% 0.2 %; LYMPH ABS # 1.94 K/uL (1.2-3.4); MEAN CELL VOLUME 95.1 fL (80-100); MEAN CORPUSCULAR HEMOGLOBIN 31.4 pg (25-34); MEAN PLATELET VOLUME 9.4 fL (7.4-10.4); MONO % 9.6 %; NEUT % 67.9 %; PLATELET COUNT 262 K/uL (130-400); RED BLOOD COUNT 3.47 M/uL (4.7-6.1); WHITE BLOOD COUNT 8.82 K/uL (4.8-10.8)
[2017-10-26 07:32] VITALS: BP 95/61; PULSE 72; TEMP 37; O2SAT 96
[2017-10-26 07:41] LABS: BUN/CREATININE RATIO 19.5 (10-20); CALCIUM 8.5 mg/dl (8.5-10.1); CREATININE 0.93 mg/dl (0.60-1.40); POTASSIUM 3.9 mmol/L (3.5-5.1)
[2017-10-26] MEDS ORDERED: LSN5 PO (07:43)
[2017-10-26] MEDS ORDERED: LPT40 PO (07:43)
[2017-10-26] MEDS ORDERED: NTRGSL/4 UT (07:43)
[2017-10-26] MEDS ORDERED: NICO21DI4 TD (07:43)
[2017-10-26] MEDS ORDERED: CLOP1TAB5 PO (07:43)
[2017-10-26] MEDS ORDERED: LPR25 PO (07:43)
--- NOTE | 2017-10-26 07:44 | Discharge Instructions ---
Discharge Instructions Date of Service Oct 26, 2017. Admission Reason for Admission: AMI Discharge Discharge Diagnosis / Problem: heart attack, with cardiac stent deployment Discharge Goals Goal(s): Diagnostic testing, Therapeutic intervention Activity Recommendations Activity Limitations: as noted below Lifting Limitations: until after follow-up appointment Exercise/Sports Limitations: none Shower/Bathe: keep incision dry (may shower do not tub bath until leg is healed ) . Instructions / Follow-Up Instructions / Follow-Up Home Care: * Take your medications exactly as directed. Don't skip doses. * Remember that recovery after a heart attack takes time. Plan to rest for at lease 4-8 weeks while you recover. Then return to normal activity when your doctor says it's okay. * Ask your doctor about joining a heart rehabilitation program. * Tell your doctor if you are feeling depressed. Feelings of sadness are common after a heart attack, but it is important that you speak to someone if you are feeling overwhelmed by these feelings. * If you are having chest pain, call 911 for an ambulance. Do NOT drive yourself to the hospital. * Ask your family members to learn CPR. * Learn to take your own blood pressure and pulse. Keep a record of your results. Ask your doctor when you should seek emergency medical attention. He or she will tell you which blood pressure reading is dangerous. Lifestyle Changes: * Maintain a healthy weight. Get help to lose any extra pounds. * Cut back on salt. * Limit canned, dried, packaged, and fast foods. * Don't add salt to your food. * Season foods with herbs instead of salt when you cook. * Break the smoking habit. Enroll in a stop-smoking program to improve your chances of success. * Limit fatty foods. * Ask your doctor about having your lipid levels checked regularly. * Build up your activity according to your doctor's recommendation. * Ask your doctor when it's okay to resume sexual activity. * Tell your doctor about any erectile dysfunction (ED) medication you are taking. Some ED medications are not safe if you take certain heart medications. * Try to manage stress. Follow Up: It is important for you to keep your follow up appointments with your medical provider. Current Hospital Diet Patient's current hospital diet: AHA Diet (Heart Healthy) Discharge Diet Recommended Diet: AHA Diet (Heart Healthy) Procedures Procedures Performed: left heart cath and stent placement, drug eluting stent in circumflex and obtuse marginal arteries Pending Studies Studies pending at discharge: no Laboratory Results Hemoglobin A1c Test 10/25/17 06:02 Range/Units Estimated Average Glucose 131 mg/dl Hemoglobin A1c 6.2 H 4.5-5.6 % Lipid Panel Test 10/25/17 06:02 Range/Units Triglycerides Level 160 H 0-150 mg/dl Cholesterol Level 186 0-200 mg/dl HDL Cholesterol 26 mg/dl Cholesterol/HDL Ratio 7.2 LDL Cholesterol, Calculated 128 mg/dl Medical Emergencies . Who to Call and When: Medical Emergencies: If at any time you feel your situation is an emergency, please call 911 immediately. Call 911 immediately or go to your nearest Emergency Room if you experience any of the following: Warning Signs and Symptoms of a Heart Attack * Chest pain that is not relieved by medication * Shortness of breath . Non-Emergent Contact Non-Emergency issues call your: Primary Care Provider, Money Room Teller Call Non-Emergent contact if: temperature is above 101, your pain is unusual for you . . "Provider Documentation" section prepared by Gabriel Siu. . Production Control Planner Recommendations Production Control Planner Recommendations: Please stop smoking, if you need more medication to help you stop see Dr Cervantes Please always remember to take your aspirin and plavix, this and smoking cessation are the most important things to keep your stents open AMI Core Measures Reason no ASA as I/P: Treatment provided - N/A Reason no ASA at D/C: Treatment provided - N/A Reason no statin as I/P: Treatment provided - N/A Reason no statin at D/C: Treatment provided - N/A VTE Core Measure Inpt VTE Proph given/why not?: Unfractionated heparin SQ
[2017-10-26] MEDS: HEPARIN SOD 5000 UNIT/0.5 ML CARP SQ SCH (09:00)
[2017-10-26] MEDS: PANTOprazole SOD 40 MG TAB PO SCH (09:09)
[2017-10-26] MEDS: METOPROLOL TARTRATE 25 MG TAB PO SCH (09:09)
[2017-10-26] MEDS: LISINOPRIL 5 MG TAB PO SCH (09:10)
[2017-10-26] MEDS: ASPIRIN 81 MG ECTAB PO SCH (09:10)
[2017-10-26] MEDS: ATORVASTATIN 40 MG TAB PO SCH (09:10)
[2017-10-26] MEDS: TICAGRELOR 90 MG TAB PO SCH (09:11)
[2017-10-26] MEDS: CITALOPRAM 40 MG TAB PO SCH (09:11)
[2017-10-26] MEDS ORDERED: CLOPIDOGREL BISULFATE 300 MG TAB PO STA (09:58)
[2017-10-26 10:30] VITALS: BP 95/61; PULSE 72; TEMP 37; O2SAT 96
[2017-10-26] MEDS ORDERED: CLOPIDOGREL BISULFATE 300 MG TAB PO ONE (11:59)
--- NOTE | 2017-10-26 16:43 | Discharge Summary ---
Discharge Summary Date of Service Oct 26, 2017. Discharge Summary Admission Date: Oct 24, 2017 at 21:42 Discharge Date: Oct 26, 2017 Discharge Disposition: Home Principal Diagnosis: stemi, stent placement Problems/Secondary Diagnoses: (1) Hypertension Status: Chronic Immunizations: Have You Had Influenza Vaccine: Unknown Influenza Vaccine Date: Jan 07, 2010 History of Tetanus Vaccine?: Unknown History of Pneumococcal: Unknown History of Hepatitis B Vaccine: Unknown Medication Reconciliation New Medications: Clopidogrel Bisulfate (Plavix) 75 Mg Tab 1 TAB PO DAILY for 90 Days, #90 TAB 3 Refills Atorvastatin (Atorvastatin Calcium) 40 Mg Tab 80 MG PO QAM, #90 TAB 3 Refills Lisinopril (Lisinopril) 5 Mg Tab 5 MG PO QAM, #90 TAB 3 Refills Nicotine (Nicoderm Cq) 21 Mg/24 Hr Dis 1 PATCH TD QAM PRN for Agitation, #30 PATCH Changed Medications: Metoprolol Tartrate (Lopressor) 25 Mg Tab 12.5 MG PO BID, #90 TAB 3 Refills (Changed from: 25 MG; Refills: ) Continued Medications: Aspirin (Aspirin Ec) 81 Mg Tab 81 MG PO DAILY Benzonatate (Tessalon Perles) 200 Mg Cap 200 MG PO TID PRN for Cough, CAP Citalopram (Citalopram Hydrobromide) 40 Mg Tab 40 MG PO DAILY Hydrocodone/Acetaminophen 10MG/325MG ([place] 10MG/325MG) Tab 1 TAB PO Q6H PRN for Pain, TAB PRN PAIN Nitroglycerin (Nitrostat) 0.4 Mg Tab 0.4 MG UT PRN, #1 BTL (This prescription has been renewed) NEEDED FOR CHEST PAIN : ONE TABLET UNDER THE TONGUE EVERY 5 MINUTES UP TO 3 DOSES. Omeprazole (Prilosec) 20 Mg Capcr 20 MG PO DAILY, CAP Discharge Exam Review of Systems: Constitutional: No fever, No chills Respiratory: No cough, No sputum, No wheezing Cardiovascular: No chest pain, No orthopnea, No edema Abdomen: No pain, No nausea, No diarrhea, No constipation Musculoskeletal: + joint pain (right wrist), No muscle pain Neurologic: + memory loss, + paralysis Psychiatric: + depression symptoms, + anhedonism Physical Exam: General Appearance: WD/WN, no apparent distress Eyes: PERRL, EOMI Neck: supple, no JVD Respiratory/Chest: chest non-tender, lungs clear, normal breath sounds Cardiovascular: regular rate, rhythm, no murmur Abdomen / GI: normal bowel sounds, non tender, soft Neurologic/Psychiatric: alert, oriented x 3 Skin: normal color, warm/dry Hospital Course 67-year-old male with acute posterior ST segment elevation myocardial infarction requiring angioplasty with ELAINE 2 to the circumflex artery previous [place] in 07 and current smoking Cardiac -Posterior Acute STEMI - * PTCA w/ successful deployment of DESx2 to the proximal circumflex artery. * Initially received Brilinta, will be discharged on dual antiplatelet therapy , BBlocker( was on metoprolol pre hospital) and statin, counselled about smoking cessation.. GERD - continue Protonix PO OSMANI w/ Cr of 1.6, IVF boluses is at risk for post contrast nephropathy. 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 Discharge Instructions Please refer to the electronic Patient Visit Report (Discharge Instructions) for additional information.
[2017-10-27] MEDS ORDERED: CLOPIDOGREL BISULFATE 75 MG TAB PO SCH (09:00)
== END 2017-10-26 12:22 | disposition home or self-care (01) | DRG 247 ==
LOC: EDBD 19:21 → C.EDA 19:24 → C.MSICU 21:42 → ENRESERV 10-25 11:45 → C.2T 10-25 12:40
PROVIDERS: ADMIT Hospitalist; ATTEND Hospitalist
PROC: B211YZZ Fluoroscopy of Multiple Coronary Arteries using Other Contrast (ICD-10-PCS; principal; 2017-10-24 20:47)
PROC: B212YZZ Fluoroscopy of Single Coronary Artery Bypass Graft using Other Contrast (ICD-10-PCS; principal; 2017-10-24 20:47)
PROC: 027035Z Dilation of Coronary Artery, One Artery with Two Drug-eluting Intraluminal Devices, Percutaneous Approach (ICD-10-PCS; principal; 2017-10-24 20:47)
PROC: 4A023N7 Measurement of Cardiac Sampling and Pressure, Left Heart, Percutaneous Approach (ICD-10-PCS; principal; 2017-10-24 20:47)
DX: I21.29 ST elevation (STEMI) myocardial infarction involving other sites (principal); N17.9 Acute kidney failure, unspecified; I47.2 Ventricular tachycardia; A77.49 Other ehrlichiosis; I25.5 Ischemic cardiomyopathy; I25.10 Atherosclerotic heart disease of native coronary artery without angina pectoris; I10 Essential (primary) hypertension; K21.9 Gastro-esophageal reflux disease without esophagitis; G89.29 Other chronic pain; J44.9 Chronic obstructive pulmonary disease, unspecified; E78.5 Hyperlipidemia, unspecified; G47.33 Obstructive sleep apnea (adult) (pediatric); M54.2 Cervicalgia; F41.9 Anxiety disorder, unspecified; F17.200 Nicotine dependence, unspecified, uncomplicated; Z79.82 Long term (current) use of aspirin; Z79.899 Other long term (current) drug therapy; Z95.1 Presence of aortocoronary bypass graft

== ENCOUNTER → 2017-11-02 | Outpatient (CLI) | payer OTHER, BC ==
[~2017-11-02] MED LIST changes: +BENZ1CAP90 PO; +CLOP1TAB5 PO; -HYDR-3419 PO; +LPT40 PO; +LSN5 PO; +NICO21DI4 TD; +NTRGSL/4 UT; -SIMV80TA2 PO
[2017-11-02 15:32] LABS: BASO % 0.3 %; BASO ABS # 0.02 K/uL (0-0.2); COMPLETE YES; EOS % 3.5 %; HEMATOCRIT 35.2 % (42-52); IG% 0.7 %; LYMPH % 32.5 %; LYMPH ABS # 2.38 K/uL (1.2-3.4); MEAN CELL VOLUME 94.4 fL (80-100); MEAN CORPUSCULAR HEMOGLOBIN 31.4 pg (25-34); MEAN CORPUSCULAR HGB CONC 33.2 g/dl (32-36); MEAN PLATELET VOLUME 9.7 fL (7.4-10.4); MONO % 7.9 %; NEUT % 55.1 %; PLATELET COUNT 380 K/uL (130-400); RED BLOOD COUNT 3.73 M/uL (4.7-6.1); WHITE BLOOD COUNT 7.33 K/uL (4.8-10.8)
[2017-11-02 16:07] LABS: ALT/SGPT 94 U/L (12-78); AST/SGOT 50 U/L (15-37); BLOOD UREA NITROGEN 15 mg/dl (7-18); CALCIUM 8.9 mg/dl (8.5-10.1); CARBON DIOXIDE 27 mmol/L (21-32); CHLORIDE 106 mmol/L (98-107); CREATININE 0.86 mg/dl (0.60-1.40); GLUCOSE 94 mg/dl (70-99); POTASSIUM 3.9 mmol/L (3.5-5.1); SODIUM 138 mmol/L (136-145)
[2017-11-02 16:10] LABS: ALB/GLOB RATIO 0.6 (0.9-2); ALKALINE PHOSPHATASE 175 U/L (45-117)
[2017-11-02 17:23] LABS: LYME DISEASE AB IGM POS (NEG)
[2017-11-02 17:24] LABS: LYME DISEASE AB IGG NEG (NEG)
--- NOTE | 2017-11-02 23:14 | DIAGNOSTIC IMAGING REPORT ---
TWO VIEW CHEST CLINICAL HISTORY: Dyspnea. Tick bite. FINDINGS: PA and lateral chest radiographs are compared to study dated 10/24/2017. The patient is status post midline sternotomy. The heart is mildly enlarged and there is atherosclerotic calcification of the thoracic aorta. The pulmonary vasculature is noncongested. Emphysema is suspected. Chronic interstitial thickening similar to previous. Patchy airspace consolidation is suspected at the left lung base. Minimal airspace opacities are also questioned in the right midlung. The right lung appears clear. No pleural effusion is identified. There is no pneumothorax. The skeletal structures are osteopenic. Degenerative change is noted throughout the thoracic spine. IMPRESSION: 1. Airspace opacities are questioned at the left lung base and in the right midlung. Chronic clinically for evidence of developing pneumonia/aspiration pneumonitis. Radiographic follow-up to resolution is recommended. 2. Suspect emphysema. 3. Cardiac enlargement without radiographic evidence of congestive failure. Electronically signed by: River Lua M.D. 11/02/2017 11:13 PM Dictated Date/Time: 11/02/2017 11:10 PM
== END | disposition home or self-care (01) ==
LOC: C.RAD1850 14:03
PROVIDERS: ATTEND Internal Medicine Infectious Disease
DX: A77.49 Other ehrlichiosis (principal); I51.7 Cardiomegaly

== ENCOUNTER → 2017-11-08 | Outpatient (CLI) | payer OTHER, BC ==
--- NOTE | 2017-11-08 09:58 | DIAGNOSTIC IMAGING REPORT ---
(LIVER) ABDOMEN LIMITED CLINICAL HISTORY: 67 years-old Male presenting with R74.8 Abnormal [id number]. TECHNIQUE: Real-time grayscale and limited color Doppler ultrasound imaging of the abdomen limited to the right upper quadrant was performed. COMPARISON: CT from 09/15/2009. FINDINGS: Pancreas: Largely obscured due to overlying bowel gas. Liver: Hyperechogenic parenchyma with heterogeneous echotexture, likely indicating fibrosis or steatosis. The liver measures 14.5 cm in maximal sagittal dimension. No sonographic evidence of hepatic mass. Main portal vein patent with normal directional flow. Biliary: No intrahepatic biliary ductal dilatation. Common bile duct measures up to 5 mm in diameter. Gallbladder: Surgically absent. Right kidney: Multiple small anechoic cysts noted measuring up to 1 cm. No hydronephrosis. Ascites: None. IMPRESSION: Hyperechogenic hepatic parenchyma with heterogeneous echotexture, could indicate underlying fibrosis or steatosis. Electronically signed by: Johan Bhakta M.D. 11/08/2017 9:57 AM Dictated Date/Time: 11/08/2017 9:55 AM
== END | disposition home or self-care (01) ==
LOC: C.ULTR 09:13
PROVIDERS: ATTEND Internal Medicine
DX: R93.2 Abnormal findings on diagnostic imaging of liver and biliary tract (principal); R74.8 Abnormal levels of other serum enzymes

== ENCOUNTER → 2017-12-16 | Outpatient (CLI) | payer OTHER, BC ==
[2017-12-16 16:33] LABS: BASO % 0.4 %; BASO ABS # 0.02 K/uL (0-0.2); COMPLETE YES; EOS ABS # 0.22 K/uL (0-0.5); HEMOGLOBIN 12.8 g/dL (14.0-18.0); IG# 0.01 K/uL (0.00-0.02); IG% 0.2 %; LYMPH % 35.6 %; LYMPH ABS # 1.97 K/uL (1.2-3.4); MEAN CELL VOLUME 93.8 fL (80-100); MEAN CORPUSCULAR HEMOGLOBIN 31.6 pg (25-34); MEAN CORPUSCULAR HGB CONC 33.7 g/dl (32-36); MEAN PLATELET VOLUME 10.7 fL (7.4-10.4); MONO % 6.1 %; MONO ABS # 0.34 K/uL (0.11-0.59); NEUT % 53.7 %; NEUT ABS # 2.97 K/uL (1.4-6.5); PLATELET COUNT 193 K/uL (130-400); RED BLOOD COUNT 4.05 M/uL (4.7-6.1); RED CELL DISTRIBUTION WIDTH CV 14.9 % (11.5-14.5); RED CELL DISTRIBUTION WIDTH SD 50.4 fL (36.4-46.3); WHITE BLOOD COUNT 5.53 K/uL (4.8-10.8)
[2017-12-16 16:56] LABS: ALBUMIN 3.5 gm/dl (3.4-5.0); ALKALINE PHOSPHATASE 88 U/L (45-117); ALT/SGPT 22 U/L (12-78); AST/SGOT 16 U/L (15-37)
[2017-12-16 16:56] LABS: TOTAL PROTEIN 6.7 gm/dl (6.4-8.2)
== END | disposition home or self-care (01) ==
LOC: C.LABBFT 14:59
DX: A77.49 Other ehrlichiosis (principal); R74.8 Abnormal levels of other serum enzymes; Z12.5 Encounter for screening for malignant neoplasm of prostate; R63.4 Abnormal weight loss